=== PATIENT | male | born 1970 | race Caucasian/White ===

== ENCOUNTER 2019-05-17 12:05 | Outpatient (RCR) | payer OTHER, SELFPAY ==
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
--- NOTE | 2019-06-06 10:41 | PCPTNOTE ---
Patient did not show up for scheduled appointment this date.
--- NOTE | 2019-06-08 13:00 | PCPTNOTE ---
pt did not show for today's reevaluation;
--- NOTE | 2019-06-20 11:56 | PCPTNOTE ---
PHYSICAL THERAPY DISCHARGE 06-20-2019 Attending Provider: Ronal Milner MD Patient:Fabricio Corrigan Date of :1970 Mr. Corrigan has not returned for any further treatments since the PT evaluation 05/17/2019, for the diagnosis of R shoulder and anterior trunk pain. Therefore he will be discharged at this time. The goals were not assessed. Thank you for referring Fabric[facility] to [facility]. Please review, sign, date and return this discharge summary GABE. I have been updated about the patient's current status and I agree with discharge from the above service at this time. Referring Physician Date
== END 2019-07-18 14:00 | disposition home or self-care (01) ==
LOC: ANHPT 12:05
PROVIDERS: PCP Family Medicine; Visit Provider Family Medicine
DX: M54.9 Dorsalgia, unspecified (principal)
CPT/HCPCS: 97110; 97161

== ENCOUNTER 2019-10-07 20:21 | Emergency (ER) | payer OTHER, SELFPAY ==
--- NOTE | ~2019-10-07 | CT_ITS ---
EXAMINATION: CT abdomen pelvis wo con DATE: 10/07/2019 21:14 INDICATION: Hematuria TECHNIQUE: Computed tomography (CT) of the abdomen and pelvis was performed without intravenous contr ast. The dose-length product (DLP) was 843.99 mGy-cm. Automated exposure control and iterative recons truction technique were employed. COMPARISON: None FINDINGS: The lung bases are clear. The heart size is normal. The liver, spleen, pancreas, and adrena l glands are normal. Stones are present in the nondistended gallbladder. Cysts of the kidneys measure up to 3.4 cm on the left. No stones are identified in the kidneys, ureters, or bladder. There is no hydronephrosis or hydroureter. No pathologically enlarged abdominal or pelvic lymph nodes are identif ied. There is no free intraperitoneal gas or evidence of bowel obstruction. The appendix is normal. T here is moderate lumbar spondylosis. There is a fat-containing umbilical hernia. IMPRESSION: 1. No CT correlate for the patient's symptoms. 2. Cholelithiasis without evidence of cholecystitis. Reviewed, dictated and finalized at location A.
[2019-10-07 20:23] VITALS: BP 116/61; PULSE 58; RESP 16; TEMP 36.9; O2SAT 98
--- NOTE | 2019-10-07 20:27 | ECG_ITS ---
Measurements Intervals [place] Rate: 52 P: 7 [place]: 171 QRS: -14 QRSD: 152 T: 18 QT: 459 QTc: 430 Interpretive Statements SINUS BRADYCARDIA RIGHT BUNDLE BRANCH BLOCK VOLTAGE CRITERIA FOR LVH HIGH LATERAL INFARCT, AGE INDETERMINATE ABNORMAL ECG Electronically Signed On 10-08-2019 7:11:00 CDT by Amado Godfrey D.O.
[2019-10-07 20:41] LABS: Basophils Absolute Auto 0.1 K/mm3 (0.0-0.1); Basophils Percent Auto 0.5 % (0.2-1.2); Eosinophils Absolute Auto 0.3 K/mm3 (0-0.3); Eosinophils Percent Auto 2.7 % (0-4.4); Hematocrit 42.9 % (42.0-52.0); Hemoglobin 14.8 g/dL (14.0-18.0); Immature Granulocyte Absolute 0.02 K/mm3 (0.00-0.031); Immature Granulocyte Percent A 0.2 % (0-0.5); Lymphocytes Absolute Auto 2.12 K/mm3 (0.9-3.2); Lymphocytes Percent Auto 20.8 % (18.3-44.2); Mean Corpuscular HGB Conc 34.5 g/dl (32-36); Mean Corpuscular Hemoglobin 32.9 pg (26-34); Mean Corpuscular Volume 95.3 fl (80-100); Mean Platelet Volume 9.6 fl (7.4-10.4); Monocytes Absolute Auto 0.9 K/mm3 (0.1-0.6); Monocytes Percent Auto 9.1 % (2.6-8.5); Neutrophils Absolute Auto 6.8 K/mm3 (1.3-6.7); Neutrophils Percent Auto 66.7 % (45.5-73.1); Platelet Count Result 312 k/mm3 (150-375); Red Cell Distribution Width 12.2 % (11.5-14.5); White Blood Count 10.2 K/mm3 (4.5-10.0)
[2019-10-07 20:48] VITALS: BP 105/65; PULSE 54; RESP 14; O2SAT 99
[2019-10-07 20:56] LABS: Alanine Aminotransferase 16 U/L (4-50); Albumin Level 4.5 g/dL (3.5-5.1); Alkaline Phosphatase 83 U/L (38-126); Anion Gap 11.9 mmol/L (7-16); Aspartate Amino Transferase 34 U/L (17-59); Bilirubin,Total 0.8 mg/dL (0.2-1.3); Blood Urea Nitrogen 8 mg/dL (9-20); Calcium 9.4 mg/dL (8.4-10.2); Carbon Dioxide 23 mmol/L (22-30); Chloride 104 mmol/L (98-107); Estimated Glomerular Filt Rate > 60; Glucose 108 mg/dL (75-110); Lipase 128 U/L (23-300); Potassium 3.9 mmol/L (3.4-5.0); Sodium 135 mmol/L (137-145)
[2019-10-07 21:12] LABS: Add Urine Microscopic? YES; Appearance Urine Cloudy (Clear); Bilirubin Urine Negative (Negative); Blood Urine 3+ (Negative); Color Urine Yellow (Yellow); Glucose Urine UA Negative (Negative); Ketones Urine Negative (Negative); Leukocyte Esterase Ur Negative LEU/UL (Negative); Mucus Urine Rare /lpf; Nitrate Urine Negative (Negative); Protein Urine 2+ mg/dL (Negative); RBC Urine >75 /hpf (0-2); Squamous Epithelial Cell Urine Occasional /hpf (Few)
[2019-10-07 21:13] LABS: Specific Grav Ur 1.033 (1.001-1.035)
--- NOTE | 2019-10-07 21:51 | ED.MALEGU ---
HPI - Male Genitourinary General Chief complaint: Urogenital-Male Stated complaint: hematuria Time Seen by Provider: 10/07/19 20:44 Source: patient Mode of arrival: ambulatory Limitations: no limitations History of Present Illness HPI Narrative: 48-year-old male States he went to [employer], felt a sudden urge to urinate, and when he grabbed the tip of my skyler a blood clot came out This process was repeated x1 after he returned home He has had some right sided lower abdomen and flank discomfort but nothing very severe for a day or 2 No trouble voiding and no discomfort with voiding No prior history of kidney stones or of any bleeding problems Onset (ago): hour(s) Duration: intermittent Related Data Home Medications Medication Instructions Recorded Confirmed escitalopram oxalate mg 10/07/19 10/07/19 gabapentin 10/07/19 hydrocodone-acetaminophen tablet 10/07/19 lisinopril 10/07/19 trazodone 10/07/19 Allergies Allergy/AdvReac Type Severity Reaction Status Date / Time No Known Allergies Allergy Verified 10/07/19 20:32 Review of Systems Review of Systems: All systems reviewed & are unremarkable except as noted in HPI and below Constitutional: Constitutional: Denies chills and Denies fever(s) ENT: Denies sore throat Cardiovascular: Cardiovascular: Denies chest pain Respiratory: Respiratory: Denies cough and Denies dyspnea Genitourinary: Genitourinary: Reports hematuria, Denies testicular pain and Denies urinary incontinence Exam Const: General: no acute distress and alert HENMT: Head: normal to inspection Mouth: Yes moist mucous membranes Eyes: Conjunctivae: conjunctivae normal EOM: EOMs intact bilaterally Resp: Effort & Inspection: normal respiratory effort : General: Yes no CVA tenderness Male General Exam: Yes normal external exam Scrotum: no scrotal swelling Testes: no testicular swelling Skin: General skin exam: normal color Rashes: no rashes Neuro: General: patient oriented x3 Course Course Emergency Course: d/w dr pantoja, husam, re f/u Vital Signs Vital signs: Vital Signs Temperature 36.9 C 10/07/19 20:23 Pulse Rate 58 L 10/07/19 20:23 Respiratory Rate 16 10/07/19 20:23 Blood Pressure 116/61 10/07/19 20:23 Pulse Oximetry 98 10/07/19 20:23 Temperature 36.9 C 10/07/19 20:23 Pulse Rate 57 L 10/07/19 22:13 Respiratory Rate 18 10/07/19 22:13 Blood Pressure 126/76 10/07/19 22:13 Pulse Oximetry 97 10/07/19 22:13 MDM - Male Genitourinary Lab Data Result diagrams: 10/07/19 20:35 10/07/19 20:35 Labs: Lab Results 10/07/19 10/07/19 10/07/19 Range/Units 20:35 20:35 21:01 WBC 10.2 H (4.5-10.0) K/mm3 RBC 4.50 L (4.6-6.20) M/mm3 Hgb 14.8 (14.0-18.0) g/dL Hct 42.9 (42.0-52.0) % MCV 95.3 (80-100) fl MCH 32.9 (26-34) pg MCHC 34.5 (32-36) g/dl RDW 12.2 (11.5-14.5) % Plt Count 312 (150-375) k/mm3 MPV 9.6 (7.4-10.4) fl Immature Gran % (Auto) 0.2 (0-0.5) % Neut % (Auto) 66.7 (45.5-73.1) % Lymph % (Auto) 20.8 (18.3-44.2) % [place] % (Auto) 9.1 H (2.6-8.5) % Eos % (Auto) 2.7 (0-4.4) % Baso % (Auto) 0.5 (0.2-1.2) % Lymph # (Auto) 2.12 (0.9-3.2) K/mm3 [place] # (Auto) 0.9 H (0.1-0.6) K/mm3 Eos # (Auto) 0.3 (0-0.3) K/mm3 Baso # (Auto) 0.1 (0.0-0.1) K/mm3 Abs Immat Gran (auto) 0.02 (0.00-0.031) K/mm3 Absolute Neuts (auto) 6.8 H (1.3-6.7) K/mm3 Absolute Nucleated RBC 0.0 (0.0-0.012) K/mm3 Nucleated RBC % 0.0 (0.0-0.2) % Sodium 135 L (137-145) mmol/L Potassium 3.9 (3.4-5.0) mmol/L Chloride 104 (98-107) mmol/L Carbon Dioxide 23 (22-30) mmol/L Anion Gap 11.9 (7-16) mmol/L BUN 8 L (9-20) mg/dL Creatinine 1.00 (0.7-1.3) mg/dL Estim Creat Clear Calc Not Reportable Estimated GFR > 60 (59 - ) Glucose 108 (75-110) mg/dL Calcium 9.4 (8.4-10.2) m
[2019-10-07 22:13] VITALS: BP 126/76; PULSE 57; RESP 18; O2SAT 97
[2019-10-07 23:01] VITALS: BP 123/75; PULSE 52; RESP 16; O2SAT 99
== END 2019-10-07 23:03 | disposition home or self-care (01) ==
PROVIDERS: Emergency Medicine; Emergency Provider Emergency Medicine; PCP Family Medicine
DX: R31.9 Hematuria, unspecified (principal); R00.1 Bradycardia, unspecified; I45.10 Unspecified right bundle-branch block; R94.31 Abnormal electrocardiogram [ECG] [EKG]
CPT/HCPCS: 36415; 74176; 80053; 81001; 83690; 85025; 93005; 99284

== ENCOUNTER 2019-11-15 10:21 | Outpatient (CLI) | payer OTHER, SELFPAY ==
--- NOTE | 2019-11-15 | EST_ITS ---
Patient Info Name: Fabricio Corrigan Age: 49 years : 1970 Gender: Male Ht: 72 in Wt: 279 lbs BSA: 2.58 m2 Exam Date: 11/15/2019 12:29 PM Exam Location: [facility] Stress Patient Status: Outpatient Admit Date: 11/15/2019 Staff Ordering Physician: Ronal Milner MD Attending Provider: GEOFF HOWARD. ANP Exercise Technologist: Taras Corrigan RDCS, RT Exam Type: CA stress test treadmill Study Info Indications R07.89 - Other chest pain A treadmill exercise stress test was performed. Summary 1. Chest discomfort with stress test, probably cardiac in origin. 2. Nondiagnostic stress ECG at sub maximal workload. Patient only achieved 75% of max predicted heart rate for age as test was terminated due to worsening shortness of breath and chest tightness. 3. Below average exercise capacity for age. 4. Recommend further cardiology evaluation based upon his exercise-induced chest pain and inability to obtain 85% maximum predicted heart rate for age. Protocol: James Stress ECG Details Stage: REST Duration (min): 1 min : 0 sec Speed (mph): 0.0 Grade (%): 0 HR (bpm): 51 SBP (mmHg): 124 DBP (mmHg): 68 METS: --- Stage: REST Duration (min): 2 min : 4 sec Speed (mph): 0.0 Grade (%): 0 HR (bpm): 68 SBP (mmHg): 124 DBP (mmHg): 68 METS: --- Stage: STAGE 1 Duration (min): 1 min : 0 sec Speed (mph): 1.7 Grade (%): 10 HR (bpm): 86 SBP (mmHg): 124 DBP (mmHg): 68 METS: --- Stage: STAGE 1 Duration (min): 2 min : 0 sec Speed (mph): 1.7 Grade (%): 10 HR (bpm): 97 SBP (mmHg): 124 DBP (mmHg): 68 METS: --- Stage: STAGE 1 Duration (min): 3 min : 0 sec Speed (mph): 1.7 Grade (%): 10 HR (bpm): 94 SBP (mmHg): 158 DBP (mmHg): 76 METS: --- Stage: STAGE 2 Duration (min): 1 min : 0 sec Speed (mph): 2.5 Grade (%): 12 HR (bpm): 109 SBP (mmHg): 158 DBP (mmHg): 76 METS: --- Stage: STAGE 2 Duration (min): 2 min : 0 sec Speed (mph): 2.5 Grade (%): 12 HR (bpm): 123 SBP (mmHg): 158 DBP (mmHg): 76 METS: --- Stage: STAGE 2 Duration (min): 3 min : 0 sec Speed (mph): 2.5 Grade (%): 12 HR (bpm): 121 SBP (mmHg): 185 DBP (mmHg): 98 METS: --- Stage: STAGE 3 Duration (min): 0 min : 7 sec Speed (mph): 3.4 Grade (%): 14 HR (bpm): 123 SBP (mmHg): 185 DBP (mmHg): 98 METS: --- Stage: RECOVERY Duration (min): 0 min : 52 sec Speed (mph): 0.0 Grade (%): 0 HR (bpm): 89 SBP (mmHg): 185 DBP (mmHg): 98 METS: --- Stage: RECOVERY Duration (min): 1 min : 52 sec Speed (mph): 0.0 Grade (%): 0 HR (bpm): 71 SBP (mmHg): 185 DBP (mmHg): 98 METS: --- Stage: RECOVERY Duration (min): 2 min : 52 sec Speed (mph): 0.0 Grade (%): 0 HR (bpm): 56 SBP (mmHg): 185 DBP (mmHg): 98 METS: ---
--- NOTE | 2019-11-15 | ECHO_ITS ---
Patient Info Name: Fabricio Corrigan Age: 49 years : 1970 Gender: Male Ht: 73 in Wt: 279 lbs BSA: 2.60 m2 HR: 48 bpm BP: 128 / 72 mmHg Heart Rhythm: Bradycardia Technical Quality: Good Exam Date: 11/15/2019 11:21 AM Exam Location: [facility] Pulmonary Patient Status: Outpatient Admit Date: 11/15/2019 Staff Ordering Physician: Ronal Milner MD [id number] Developer: Raisa Garcia RDCS Attending Provider: Ronal Milner MD Referring Physician: Alf MELENDREZ; Exam Type: CA echo doppler color flow Study Info Indications - chest pain Complete two-dimensional, color flow and Doppler transthoracic echocardiogram is performed. Strain analysis performed. Summary 1. Complete two-dimensional, color flow and Doppler transthoracic echocardiogram is performed. 2. Strain analysis performed. 3. Left ventricular chamber dimension is normal. 4. Left ventricular systolic function is normal, estimated at 65-70%. 5. There is mildly increased left ventricular wall thickness. 6. The left ventricular diastolic function is normal. 7. Global longitudinal strain is normal at -21 %. 8. Left atrial chamber dimension is mildly enlarged. 9. Abnormal appearance of the aortic valve with a 0.4 cm calcification associated with what appears to be the non coronary cusp. There is corresponding moderate aortic insufficiency. Transesophageal echocardiogram is recommended for further evaluation. 10. There is mild tricuspid valve regurgitation. 11. There is mild pulmonic regurgitation. Left Ventricle Left ventricular chamber dimension is normal. Left ventricular systolic function is normal, estimated at 65-70%. There is mildly increased left ventricular wall thickness. The left ventricular diastolic function is normal. Global longitudinal strain is normal at -21 %. Right Ventricle Right ventricular chamber dimension is normal. Right ventricular systolic function is normal. Left Atria Left atrial chamber dimension is mildly enlarged. Right Atria Right atrial chamber dimension is normal. Atrial Septum Intact interatrial septum visualized by color flow imaging. Aortic Valve The aortic valve is probable trileaflet. There is no aortic valve stenosis. There is moderate aortic valve regurgitation. Abnormal appearance of the aortic valve with a 0.4 cm calcification associated with what appears to be the non coronary cusp. There is corresponding moderate aortic insufficiency. Transesophageal echocardiogram is recommended for further evaluation. Pulmonic Valve The pulmonic valve is normal. There is no pulmonic valve stenosis. There is mild pulmonic regurgitation. Mitral Valve The mitral valve has thickened leaflets. There is no mitral valve stenosis. There is trace mitral valve regurgitation. Tricuspid Valve The tricuspid valve leaflets are normal. There is no significant tricuspid valve stenosis. There is mild tricuspid valve regurgitation. No pulmonary hypertension, estimated pulmonary arterial systolic pressure is 34 mmHg. Pericardium/Pleural The pericardium appears normal. There is no pericardial effusion. Inferior Vena Cava Normal inferior vena cava with >50% collapse upon inspiration consistent with normal right atrial pressure, 10 mmHg. Aorta The aortic root size at the sinus of Valsalva is normal. The prox ascending aorta size is normal. Left Ventricular Outflow Tract
== END 2019-11-15 10:22 | disposition home or self-care (01) ==
PROVIDERS: PCP Family Medicine; Visit Provider Family Medicine
DX: R07.89 Other chest pain (principal); I51.7 Cardiomegaly; I08.2 Rheumatic disorders of both aortic and tricuspid valves
CPT/HCPCS: 93017; 93306

== ENCOUNTER 2019-11-24 10:41 | Outpatient (CLI) | payer OTHER, SELFPAY ==
[2019-11-24 11:19] LABS: Cholesterol 161 mg/dL (0-200); HDL Direct 37 mg/dL; Triglycerides 88 mg/dL (<150)
[2019-11-24 11:30] LABS: LDL Cholesterol Direct 103 mg/dL
== END 2019-11-24 10:42 | disposition home or self-care (01) ==
PROVIDERS: PCP Family Medicine; Visit Provider Internal Medicine Cardiovascular Disease
DX: E66.9 Obesity, unspecified (principal)
CPT/HCPCS: 36415; 80061

== ENCOUNTER 2019-12-06 09:11 | Outpatient (CLI) | payer OTHER, SELFPAY ==
--- NOTE | 2019-12-06 | EST_ITS ---
Patient Info Name: Fabricio Corrigan Age: 49 years : 1970 Gender: Male Ht: 72 in Wt: 280 lbs BSA: 2.59 m2 Exam Date: 12/06/2019 11:35 AM Exam Location: [facility] Stress Patient Status: Outpatient Admit Date: 12/06/2019 Staff Ordering Physician: Aramis, Sunita Yi NP Attending Provider: Aramis, Sunita Yi NP Exercise Technologist: Taras Corrigan RDCS, RT Exercise Physician: Amado Godfrey DO Exam Type: CA stress era w NM Study Info A regadenoson stress test was performed. Summary 1. 1. Negative lexiscan stress test for ischemic ST changes by ECG criteria. 2. 2. Stable hemodynamics throughout the test. 3. 3. Nuclear scan to follow and will be reported separately. Please correlate with it. 4. 4. Patient informed of the above results. Protocol: Lexiscan Stress ECG Details Stage: REST Duration (min): 1 min : 24 sec HR (bpm): 44 SBP (mmHg): 139 DBP (mmHg): 66 Stage: REST Duration (min): 15 min : 50 sec HR (bpm): 48 SBP (mmHg): 139 DBP (mmHg): 66 Stage: STAGE 1 Duration (min): 1 min : 0 sec HR (bpm): 62 SBP (mmHg): 123 DBP (mmHg): 81 Stage: RECOVERY Duration (min): 1 min : 0 sec HR (bpm): 72 SBP (mmHg): 123 DBP (mmHg): 81 Stage: RECOVERY Duration (min): 2 min : 0 sec HR (bpm): 69 SBP (mmHg): 123 DBP (mmHg): 81 Stage: RECOVERY Duration (min): 3 min : 0 sec HR (bpm): 64 SBP (mmHg): 127 DBP (mmHg): 81 Stage: RECOVERY Duration (min): 3 min : 11 sec HR (bpm): 62 SBP (mmHg): 127 DBP (mmHg): 81 Rest HR: 48 bpm Peak HR: 74 bpm Rest Sys BP: 139 mmHg Peak Sys BP: 127 mmHg Max Pred HR: 169 bpm % Max Pred HR: 44 % Target HR: 144 bpm Max RPP: 9,398 bpm*mmHg Termination Reason: Completed protocol Cardiac Symptoms: Shortness of breath, Chest tightness Total Time: 1 min : 0 sec Rest Anderson BP: 66 mmHg Peak Anderson BP: 81 mmHg Total Dose: 0.4 mg Resting ECG Sinus bradycardia with RBBB. Stress ECG No ST changes. Arrhythmias None. Report Signatures
--- NOTE | ~2019-12-06 | NM_ITS ---
EXAMINATION: NM era stress w perfusion DATE: 12/06/2019 13:31 INDICATION: Central chest pain. TECHNIQUE: Rest images were obtained following intravenous administration of 10.2 mCi Tc99m tetrofosm in (Myoview). The patient was infused intravenously with Lexiscan (regadenoson). Then, 20.5 mCi Tc99m tetrofosmin (Myoview) was administered intravenously, and supine and prone stress images were obtain ed. Data was reconstructed into short axis and horizontal and vertical long axis SPECT images. Gated SPECT images were also obtained. COMPARISON: CT abdomen and pelvis 10/07/2019 FINDINGS: There is no definite reversible or fixed perfusion abnormality to suggest ischemia or infar ction. There is no segmental wall motion abnormality. Left ventricular ejection fraction measures 5 5%. IMPRESSION: 1. No definite ischemia or infarct. 2. Normal left ventricular ejection fraction measuring 55%. Reviewed, dictated and finalized at location A.
== END 2019-12-06 09:12 | disposition home or self-care (01) ==
PROVIDERS: PCP Family Medicine; Visit Provider Nurse Practitioner
DX: R07.9 Chest pain, unspecified (principal)
CPT/HCPCS: 78452; 93017; A9502; J2785

== ENCOUNTER 2019-12-29 14:31 | Emergency (ER) | payer OTHER, SELFPAY ==
--- NOTE | ~2019-12-29 | XR_ITS ---
EXAMINATION: XR chest 1V portable INDICATION: Left-sided chest pain TECHNIQUE: Portable AP chest at 1633 hours COMPARISON: None available FINDINGS: The heart size is upper limits of normal for technique. There are minimal airspace opacitie s of the lung bases. No pleural effusion or pneumothorax is identified. Surgical changes are noted in the cervical spine. IMPRESSION: 1. Bibasilar airspace opacities, consistent with atelectasis versus pneumonia. Reviewed, dictated and finalized at location A.
[2019-12-29 14:35] VITALS: BP 115/65; PULSE 73; RESP 20; TEMP 36.6; O2SAT 98
--- NOTE | 2019-12-29 14:46 | ECG_ITS ---
Measurements Intervals [place] Rate: 55 P: 48 ND: 206 QRS: -20 QRSD: 156 T: 21 QT: 443 QTc: 424 Interpretive Statements SINUS BRADYCARDIA WITH FIRST DEGREE AV BLOCK RIGHT BUNDLE BRANCH BLOCK VOLTAGE CRITERIA FOR LVH HIGH LATERAL INFARCT, AGE INDETERMINATE ABNORMAL ECG Electronically Signed On 12-30-2019 7:27:44 CDT by Amado Godfrey D.O.
[2019-12-29 14:57] LABS: Basophils Absolute Auto 0.1 K/mm3 (0.0-0.1); Basophils Percent Auto 0.8 % (0.2-1.2); Eosinophils Absolute Auto 0.3 K/mm3 (0-0.3); Eosinophils Percent Auto 4.7 % (0-4.4); Hematocrit 45.5 % (42.0-52.0); Hemoglobin 15.6 g/dL (14.0-18.0); Immature Granulocyte Absolute 0.03 K/mm3 (0.00-0.031); Immature Granulocyte Percent A 0.4 % (0-0.5); Lymphocytes Absolute Auto 2.66 K/mm3 (0.9-3.2); Lymphocytes Percent Auto 36.8 % (18.3-44.2); Mean Corpuscular HGB Conc 34.3 g/dl (32-36); Mean Corpuscular Hemoglobin 33.1 pg (26-34); Mean Corpuscular Volume 96.4 fl (80-100); Monocytes Absolute Auto 0.5 K/mm3 (0.1-0.6); Monocytes Percent Auto 6.9 % (2.6-8.5); Neutrophils Absolute Auto 3.6 K/mm3 (1.3-6.7); Neutrophils Percent Auto 50.4 % (45.5-73.1); Platelet Count Result 254 k/mm3 (150-375); Red Blood Count 4.72 M/mm3 (4.6-6.20); Red Cell Distribution Width 11.9 % (11.5-14.5); White Blood Count 7.2 K/mm3 (4.5-10.0)
[2019-12-29 15:00] VITALS: PULSE 56
[2019-12-29 15:05] LABS: Prothrombin Time 13.2 Seconds (11.1-14.7)
[2019-12-29 15:06] LABS: Partial Thromboplastin Time 34.9 SECONDS (22.3-36.8)
[2019-12-29 15:08] LABS: Anion Gap 9 mmol/L (8-16); Blood Urea Nitrogen 8 mg/dL (9-20); Calcium 9.3 mg/dL (8.4-10.2); Carbon Dioxide 28 mmol/L (22-30); Chloride 103 mmol/L (98-107); Estimated CRCL calculation 116 ml/min; Estimated Glomerular Filt Rate > 60; Glucose 118 mg/dL (75-110); Potassium 4.1 mmol/L (3.4-5.0); Sodium 140 mmol/L (137-145)
[2019-12-29 15:20] LABS: Troponin I < 0.012 ng/mL (0.000-0.034)
[2019-12-29 15:40] VITALS: BP 114/52; PULSE 61; RESP 17; O2SAT 98
[2019-12-29] MEDS: ALBUTEROL SULFATE NEB 2.5 MG/0.5 ML INH 5 MG INHALATION (15:54)
[2019-12-29] MEDS: IPRATROPIUM BR 0.02% INH SOLN 0.5 MG/2.5 ML VIAL INHALATION (15:54)
[2019-12-29 15:55] VITALS: PULSE 46; RESP 16
--- NOTE | 2019-12-29 15:57 | ED.CHESTPAIN ---
HPI - Chest Pain General Chief Complaint: Chest Pain Stated Complaint: chest pain, tingling arm Time Seen by Provider: 12/29/19 14:56 History of Present Illness HPI narrative: Patient is a 49-year-old male who presents ER with central chest tightness and heaviness. Ongoing for the last week. Reports he does have exertional fatigue which has been ongoing. He has had a recent stress test that he is unsure of the results. He reports he also has chronic neck pain and has been feeling some left shoulder and arm numbness related to the chest discomfort into his neck. No known trauma. Has not found any alleviating factors. He is also noted that he has been wheezing with this discomfort. He has tried his rescue inhaler and his control inhaler without relief. No runny nose/sore throat/productive cough. His [id number]-to-kxq who lives with him is Covid positive but his and stepchild are Covid negative. He has not been tested. He has been afebrile. Related Data Home Medications Medication Instructions Recorded Confirmed escitalopram oxalate mg 10/07/19 11/24/19 gabapentin 10/07/19 11/24/19 hydrocodone-acetaminophen tablet 10/07/19 11/24/19 lisinopril 10/07/19 11/24/19 trazodone 10/07/19 11/24/19 Allergies Allergy/AdvReac Type Severity Reaction Status Date / Time No Known Allergies Allergy Verified 12/29/19 15:01 Review of Systems Review of Systems: All systems reviewed & are unremarkable except as noted in HPI and below Constitutional: Constitutional: Denies body ache(s) and Denies chills ENT: Denies nasal congestion, Reports neck pain (chronic), Denies sinus pressure and Denies sore throat Cardiovascular: Cardiovascular: Reports chest pain, Denies chest pain with activity, Denies irregular heart rhythm and Denies leg edema Respiratory: Respiratory: Denies chest congestion, Denies cough, Reports dyspnea and Reports wheezing PMFSH Past Medical History Medical History (Updated 12/29/19 @ 18:25 by Jose Gee MD) Aortic regurgitation Hypertension Surgical History Surgical History (Updated 12/29/19 @ 16:03 by Jose Gee MD) H/O neck surgery Social History Social History (Updated 12/29/19 @ 18:25 by Jose Gee MD) Smoking status: Never smoker Substance use type: marijuana Exam Narrative: Exam Narrative: GENERAL: Well-appearing, well-nourished, and in no acute distress. HEAD: Normocephalic, atraumatic. CHEST: Clear to auscultation with referred upper respiratory wheezing. No respiratory distress. HEART: Regular rate and rhythm. Normal peripheral pulses. ABDOMEN: Soft, nontender, nondistended, normal active bowel sounds. EXTREMITIES: Normal range of motion. No edema. SKIN: Warm, dry, no rash. NEURO: Alert and oriented x3. PSYCH: Normal mood and affect. Course Course Emergency Course: Patient with improvement of symptoms with nebulizer treatment. Patient does have some wheezing. May be having reactive lung disease to viral infection. This does raise the concern for Covid so he will be swabbed. He will be discharged with azithromycin. I have instructed him to use his albuterol every 4 hours and to use 4 puffs each time. He has had a negative stress test recently. Vital Signs Vital signs: Vital Signs Temperature 97.8 F 12/29/19 14:35 Pulse Rate 73 12/29/19 14:35 Respiratory Rate 20 12/29/19 14:35 Blood Pressure 115/65 12/29/19 14:35 Pulse Oximetry 98 12/29/19 14:35 Temperature 97.8 F 12/29/19 14:35 Pulse Rate 53 L 12/29/19 16:37 Respiratory Rate 17 12/29/19 16:37 Blood Pressure 116/82 12/29/19 16:37 Pulse Oximetry 98 12/29/19 16:37 MDM - Chest Pain Lab Data Result diagrams: 12/29/19 14:49 12/29/19 14:49 Labs: Lab Results 12/29/19 12/29/19 12/29/19 Range/Units 14:49 14:49 14:49 WBC 7.2 (4.5-10.0) K/mm3 RBC 4.72 (4.6-6.20) M/mm3 Hgb 15.6 (14.0-18.0) g/dL Hct 45.5 (42.
[2019-12-29 16:37] VITALS: BP 116/82; PULSE 53; RESP 17; O2SAT 98
[2019-12-29 18:10] LABS: Troponin I < 0.012 ng/mL (0.000-0.034)
[2019-12-30 13:17] LABS: SARS-CoV-2 RNA PCR Negative
== END 2019-12-29 18:45 | disposition home or self-care (01) ==
PROVIDERS: Emergency Provider Emergency Medicine; PCP Family Medicine
DX: J40 Bronchitis, not specified as acute or chronic (principal); Z20.828 Contact with and (suspected) exposure to other viral communicable diseases; I10 Essential (primary) hypertension; I35.1 Nonrheumatic aortic (valve) insufficiency
CPT/HCPCS: 36415; 71045; 80048; 84484; 85025; 85610; 85730; 87635; 93005; 94640; 99284; C9803; U0003

== ENCOUNTER 2020-04-17 15:32 | Outpatient (CLI) | payer OTHER, SELFPAY ==
--- NOTE | ~2020-04-17 | CT_ITS ---
EXAMINATION: CT abdomen pelvis wo con EXAM DATE: 04/17/2020 16:20 INDICATION: Low abdominal pain. TECHNIQUE: Spiral CT of the abdomen and pelvis was performed without contrast. Axial, coronal and s agittal images were reviewed. The dose-length product (DLP) for this examination was 1409.56 mGy-cm. The exposure was tailored according to patient size (auto mA exposure control), and iterative recon struction (ASIR) was used as additional dose reduction technique. There is no prior study for compar brooks. FINDINGS: The liver, spleen, adrenal glands and pancreas are unremarkable. There are gallstones with in an otherwise unremarkable gallbladder. No evidence of obstructive biliary disease. Left renal cys t measuring 3.4 cm. There is no nephrolithiasis or hydronephrosis. The prostate is unremarkable. The bladder is unremarkable. There is no retroperitoneal or pelvic lymphadenopathy. Probable small r egion of chronic fat necrosis deep to the right inguinal canal. There are no findings to suggest appendicitis. The stomach and small bowel are unremarkable. There is expected amount of colonic stool. No free intraperitoneal gas. The heart is normal in size. T here are no pericardial or pleural effusions. Some faint ill-defined regions of basilar groundglass opacity, more pronounced than on previous exam. Could be air trapping or nonspecific pneumonitis. The bones are unremarkable. IMPRESSION: 1. Small amount of basilar groundglass opacities, air trapping or nonspecific pneumonitis. 2. No acute intra-abdominal findings. Reviewed, dictated and finalized at location B. 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
== END 2020-04-17 15:33 | disposition home or self-care (01) ==
PROVIDERS: PCP Family Medicine; Visit Provider Nurse Practitioner
DX: R10.30 Lower abdominal pain, unspecified (principal); R91.8 Other nonspecific abnormal finding of lung field
CPT/HCPCS: 74176

== ENCOUNTER 2020-08-20 09:33 | Outpatient (CLI) | payer OTHER, SELFPAY ==
[2020-08-20 10:07] LABS: Basophils Percent Auto 0.7 % (0.2-1.2); Eosinophils Absolute Auto 0.4 K/mm3 (0-0.3); Eosinophils Percent Auto 5.8 % (0-4.4); Hematocrit 41.2 % (42.0-52.0); Hemoglobin 14.2 g/dL (14.0-18.0); Immature Granulocyte Absolute 0.02 K/mm3 (0.00-0.031); Immature Granulocyte Percent A 0.3 % (0-0.5); Lymphocytes Absolute Auto 1.76 K/mm3 (0.9-3.2); Lymphocytes Percent Auto 29.3 % (18.3-44.2); Mean Corpuscular HGB Conc 34.5 g/dl (32-36); Mean Corpuscular Hemoglobin 32.3 pg (26-34); Mean Corpuscular Volume 93.8 fl (80-100); Mean Platelet Volume 9.5 fl (7.4-10.4); Monocytes Absolute Auto 0.8 K/mm3 (0.1-0.6); Monocytes Percent Auto 12.5 % (2.6-8.5); Neutrophils Absolute Auto 3.1 K/mm3 (1.3-6.7); Neutrophils Percent Auto 51.4 % (45.5-73.1); Platelet Count Result 238 k/mm3 (150-375); Red Blood Count 4.39 M/mm3 (4.6-6.20); Red Cell Distribution Width 12.3 % (11.5-14.5)
[2020-08-20 10:17] LABS: Alanine Aminotransferase 14 U/L (4-50); Albumin Level 4.1 g/dL (3.5-5.1); Alkaline Phosphatase 58 U/L (38-126); Anion Gap 8 mmol/L (8-16); Aspartate Amino Transferase 27 U/L (17-59); Bilirubin,Total 0.6 mg/dL (0.2-1.3); Blood Urea Nitrogen 11 mg/dL (9-20); Calcium 9.6 mg/dL (8.4-10.2); Carbon Dioxide 27 mmol/L (22-30); Chloride 106 mmol/L (98-107); Cholesterol 163 mg/dL (0-200); Estimated Glomerular Filt Rate > 60; Glucose 93 mg/dL (75-110); HDL Direct 46 mg/dL; Potassium 4.2 mmol/L (3.4-5.0); Sodium 141 mmol/L (137-145); Triglycerides 95 mg/dL (<150)
[2020-08-20 10:29] LABS: LDL Cholesterol Direct 79 mg/dL
[2020-08-20 10:38] LABS: Creatinine Urine 203.7 mg/dL
[2020-08-20 10:42] LABS: MALB Creatinine Ratio 6.3 mg/g (0-30); Microalbumin Urine Random 12.9 mg/L (0-16.7)
[2020-08-20 10:48] LABS: Prostate Specific Antigen 2.7 ng/mL (< OR = 4.0); Total Triiodothyronine (T3) 1.72 NG/ML (0.97-1.69)
[2020-08-20 10:54] LABS: Free T4 Free Thyroxine 1.32 ng/mL (0.78-2.19); Vitamin D 25 Hydroxy 42.8 ng/mL
== END 2020-08-20 09:34 | disposition home or self-care (01) ==
PROVIDERS: PCP Family Medicine; Visit Provider Nurse Practitioner
DX: F32.9 Major depressive disorder, single episode, unspecified (principal); F41.9 Anxiety disorder, unspecified; I10 Essential (primary) hypertension; G47.00 Insomnia, unspecified
CPT/HCPCS: 36415; 80053; 80061; 82043; 82306; 84153; 84439; 84443; 84480; 85025; G0103

== ENCOUNTER 2020-09-04 19:56 | Emergency (ER) | payer OTHER, SELFPAY ==
--- NOTE | ~2020-09-04 | CT_ITS ---
EXAMINATION: CT abdomen pelvis w con DATE: 09/04/2020 23:03 INDICATION: Right lower quadrant abdominal pain. Right flank pain. TECHNIQUE: Computed tomography (CT) of the abdomen and pelvis was performed with 100 mL Omnipaque 350 intravenous contrast. Automated exposure control and iterative reconstruction technique were employe d. The dose-length product was 1410.54 mGy-cm. COMPARISON: CT abdomen and pelvis 04/17/2020 FINDINGS: The visualized portions of the lung bases demonstrate mild atelectasis. No pleural effusion . The heart size is normal. No pericardial effusion. The liver is normal. There are gallstones in the gallbladder, which is distended. The spleen, pancreas, and adrenal glands are normal. There is corti torrey thinning of the kidneys. There are cysts in the kidneys measuring up to 3.7 cm on the left. The p rostate is mildly enlarged. There are no dilated loops of bowel. The appendix is normal. There are no pathologically enlarged lymph nodes. There is trace pelvic ascites. There is severe lumbar spondylos is. IMPRESSION: 1. Cholelithiasis. Gallbladder distention may be secondary to fasting or acute cholecystitis. Correla te with physical exam. Reviewed, dictated and finalized at location A. IMPRESSION: 1. Cholelithiasis. Gallbladder distention may be secondary to fasting or acute cholecystitis. Correlate with physical exam.
[2020-09-04 20:09] VITALS: BP 125/68; PULSE 58; RESP 16; TEMP 37.3; O2SAT 100
[2020-09-04 20:22] LABS: Basophils Percent Auto 0.5 % (0.2-1.2); Eosinophils Absolute Auto 0.2 K/mm3 (0-0.3); Eosinophils Percent Auto 2.6 % (0-4.4); Hematocrit 43.9 % (42.0-52.0); Hemoglobin 15.5 g/dL (14.0-18.0); Immature Granulocyte Absolute 0.03 K/mm3 (0.00-0.031); Immature Granulocyte Percent A 0.4 % (0-0.5); Lymphocytes Absolute Auto 1.66 K/mm3 (0.9-3.2); Lymphocytes Percent Auto 21.4 % (18.3-44.2); Mean Corpuscular HGB Conc 35.3 g/dl (32-36); Mean Corpuscular Hemoglobin 32.8 pg (26-34); Mean Platelet Volume 9.2 fl (7.4-10.4); Monocytes Absolute Auto 0.6 K/mm3 (0.1-0.6); Monocytes Percent Auto 7.4 % (2.6-8.5); Neutrophils Absolute Auto 5.2 K/mm3 (1.3-6.7); Neutrophils Percent Auto 67.7 % (45.5-73.1); Platelet Count Result 257 k/mm3 (150-375); Red Blood Count 4.72 M/mm3 (4.6-6.20); Red Cell Distribution Width 11.9 % (11.5-14.5); White Blood Count 7.7 K/mm3 (4.5-10.0)
[2020-09-04 20:33] LABS: Alanine Aminotransferase 19 U/L (4-50); Albumin Level 4.5 g/dL (3.5-5.1); Alkaline Phosphatase 69 U/L (38-126); Anion Gap 7 mmol/L (8-16); Aspartate Amino Transferase 35 U/L (17-59); Bilirubin,Total 0.7 mg/dL (0.2-1.3); Blood Urea Nitrogen 13 mg/dL (9-20); Calcium 9.7 mg/dL (8.4-10.2); Carbon Dioxide 25 mmol/L (22-30); Chloride 107 mmol/L (98-107); Estimated CRCL calculation 92 ml/min; Estimated Glomerular Filt Rate > 60; Glucose 110 mg/dL (75-110); Lipase 149 U/L (23-300); Potassium 4.6 mmol/L (3.4-5.0); Sodium 139 mmol/L (137-145)
[2020-09-04 20:58] LABS: Add Urine Microscopic? NO; Appearance Urine Clear (Clear); Bilirubin Urine Negative (Negative); Blood Urine Negative (Negative); Color Urine Yellow (Yellow); Glucose Urine UA Negative (Negative); Ketones Urine Negative (Negative); Leukocyte Esterase Ur Negative LEU/UL (Negative); Nitrate Urine Negative (Negative); Protein Urine Negative (Negative); Specific Grav Ur 1.019 (1.001-1.035); Urobilinogen Urine Negative mg/dL (<2.0)
--- NOTE | 2020-09-04 22:39 | ED.NAVMDI ---
HPI - Nausea/Vomiting/Diarrhea General Chief complaint: Nausea/Vomiting/Diarrhea Stated complaint: diarrhea since wed- eat, only sleep Time Seen by Provider: 09/04/20 21:36 Source: patient Mode of arrival: ambulatory Limitations: no limitations History of Present Illness HPI Narrative: Patient is a 49-year-old male complaining of diarrhea, described as loose watery, nonbloody, accompanied by decrease in appetite, generalized weakness and lower abdominal pain. Patient states that when he tries to drink or eat it goes right through him, meaning his diarrhea. Patient denies any nausea, vomiting, fever or chills. Related Data Home Medications Medication Instructions Recorded Confirmed gabapentin 10/07/19 06/27/20 hydrocodone-acetaminophen tablet 10/07/19 06/27/20 bupropion HCl 150 mg tablet,12 hr 150 mg PO DAILY 03/29/20 06/27/20 sustained-release trazodone 100 mg tablet 150 mg PO DAILY tablet 05/09/20 06/27/20 albuterol sulfate 90 mcg/actuation 1 puff INHALATION Q4H PRN 06/27/20 06/27/20 aerosol inhaler fluticasone propionate 50 1 inh INHALATION Q12H 06/27/20 06/27/20 mcg/actuation blister powder for inhalation lamotrigine 25 mg tablet 75 mg PO DAILY 06/27/20 06/27/20 lisinopril 20 mg tablet 20 mg PO DAILY 06/27/20 06/27/20 loratadine 10 mg tablet 10 mg PO DAILY 06/27/20 06/27/20 meloxicam 15 mg tablet 15 mg PO DAILY 06/27/20 06/27/20 gabapentin 09/04/20 hydrocodone-acetaminophen tablet 09/04/20 Allergies Allergy/AdvReac Type Severity Reaction Status Date / Time No Known Allergies Allergy Verified 09/04/20 23:18 Review of Systems Review of Systems: All systems reviewed & are unremarkable except as noted in HPI and below Constitutional: Constitutional: Denies body ache(s), Denies chills, Denies excessive sweating, Denies fatigue, Denies fever(s), Denies headache(s), Denies lethargy, Denies malaise, Denies weakness and Denies weight loss Eyes: Eyes: Denies blurry vision, Denies change in vision and Denies loss of vision ENT: Denies dizziness, Denies ear discharge, Denies headache(s), Denies lip swelling, Denies epistaxis, Denies nasal congestion, Denies neck pain, Denies throat swelling and Denies tongue swelling Cardiovascular: Cardiovascular: Denies chest pain, Denies chest pain at rest, Denies chest pain with activity, Denies diaphoresis, Denies rapid heart rate, Denies edema, Denies irregular heart rhythm, Denies lightheadedness, Denies palpitations, Denies dyspnea and Denies dyspnea on exertion Respiratory: Respiratory: Denies chest congestion, Denies cough, Denies hemoptysis, Denies dyspnea and Denies dyspnea on exertion Gastrointestinal: Gastrointestinal: Denies melena, Denies hematochezia, Denies nausea, Denies vomiting and Denies hematemesis Musculoskeletal: Musculoskeletal: Denies abnormal gait, Denies deformity, Denies joint swelling, Denies limited range of motion, Denies neck pain and Denies numbness Neurologic: Denies Abnormal speech present, Denies abnormal gait, Denies confusion, Denies dizziness, Denies headache(s), Denies focal weakness, Denies loss of vision, Denies numbness, Denies Other visual disturbances, Denies Sensory deficit (Neuro) and Denies weakness Psychiatric: Psychiatric: Denies confusion, Denies depression, Denies auditory hallucinations, Denies homicidal ideation and Denies suicidal ideation Endocrine: Endocrine: Denies cold intolerance, Denies excessive sweating, Denies fatigue, Denies heat intolerance and Denies palpitations Hematologic/Lymphatic: Hematologic/Lymphatic: Denies easy bleeding and Denies easy bruising Allergic/Immunologic: Allergic/Immunologic: Denies lip swelling, Denies throat swelling and Denies tongue swelling PMFSH Past Medical History Medical History Aortic regurgitation Degenerative arthritis Dorsalgia Hypertension Opiate dependence Surgical History Surgical History (Reviewed 09/04/20 @
[2020-09-04] MEDS: LACTATED RINGERS 1,000 ML 999 ML IV CONT (23:05)
[2020-09-04 23:24] VITALS: BP 120/78; PULSE 49; RESP 16; O2SAT 98
[2020-09-05] MEDS: HYDROcodone/acetaminophen (*CRX) 5-325 MG TABLET 2 TAB PO (00:10)
[2020-09-05 00:17] VITALS: BP 120/68; PULSE 54; RESP 16; O2SAT 99
== END 2020-09-05 00:17 | disposition home or self-care (01) ==
PROVIDERS: Emergency Medicine; Emergency Provider Emergency Medicine; PCP Family Medicine
DX: K52.9 Noninfective gastroenteritis and colitis, unspecified (principal); K80.20 Calculus of gallbladder without cholecystitis without obstruction; I10 Essential (primary) hypertension
CPT/HCPCS: 36415; 74177; 80053; 81003; 83690; 85025; 96360; 99284; A9270; J7120; Q9967

== ENCOUNTER 2020-10-05 22:43 | Emergency (ER) | payer OTHER, SELFPAY ==
--- NOTE | ~2020-10-05 | XR_ITS ---
XR abdomen/kub 1V DATE: 10/06/2020 02:23 INDICATION: Right flank pain TECHNIQUE: AP projection, 2 views COMPARISON: 10/06/[address] abdomen pelvis FINDINGS: There is moderately prominent of fecal material in the cecum, ascending and transverse and descending colon. There is gaseous distention of the descending and sigmoid colon and rectum. No gregor l obstruction is evident. Associated as are intact. No visceromegaly is detected. No significant abnormal calcification is noted. IMPRESSION: Prominent amount fecal material and gas in the colon without apparent obstruction Reviewed, dictated and finalized at [facility]. Reviewed, dictated and finalized at location A. IMPRESSION: Prominent amount fecal material and gas in the colon without appare nt obstruction
--- NOTE | ~2020-10-05 | CT_ITS ---
EXAMINATION: CT abdomen pelvis wo con DATE: 10/06/2020 02:19 INDICATION: Right flank pain TECHNIQUE: Computed tomography (CT) of the abdomen and pelvis was performed without intravenous contr ast. Automated exposure control and iterative reconstruction technique were employed. Exam dose: 123 1.48 mGy-cm total exam DLP. COMPARISON: 09/04/2020 CT abdomen pelvis with IV contrast material FINDINGS: There is mild discoid atelectasis and/or scarring at the base of the lingula and left lower lobe. Mild patchy groundglass infiltrate or atelectasis in both lower lobes. Cardiomegaly. No pericardial or pleural effusion. Multiple gallstones. No gallbladder wall thickening or pericholecystic fluid or fat stranding is note d. No bile duct or pancreatic duct dilatation. No hepatic or pancreatic, splenic or adrenal space-occupying mass lesion is detected on this limited noncontrast examination. Bilateral renal cysts, the largest situated on the left, measuring up to 3.6 cm. No urinary tract calculus or hydroureteronephrosis. Normal caliber of the abdominal aorta. No intraperitoneal or retroperitoneal or pelvic mass lesion or adenopathy or ascites. Normal appendix. No bowel obstruction, bowel wall thickening, pneumatosis or intraperitoneal free air . No suspicious osteolytic or osteoblastic lesions. Degenerative changes of the thoracic and lumbar spi ne, including severe degenerative disc disease at L5-S1. IMPRESSION: Cholelithiasis Bilateral renal cysts Reviewed, dictated and finalized at [facility]. Reviewed, dictated and finalized at location A.
[2020-10-05 22:49] VITALS: BP 109/58; PULSE 51; RESP 16; TEMP 36.7; O2SAT 99
[2020-10-05 23:09] LABS: Basophils Percent Auto 0.7 % (0.2-1.2); Eosinophils Absolute Auto 0.4 K/mm3 (0-0.3); Eosinophils Percent Auto 6.4 % (0-4.4); Hematocrit 38.7 % (42.0-52.0); Hemoglobin 12.8 g/dL (14.0-18.0); Immature Granulocyte Absolute 0.01 K/mm3 (0.00-0.031); Immature Granulocyte Percent A 0.2 % (0-0.5); Lymphocytes Absolute Auto 2.04 K/mm3 (0.9-3.2); Lymphocytes Percent Auto 33.7 % (18.3-44.2); Mean Corpuscular HGB Conc 33.1 g/dl (32-36); Mean Corpuscular Volume 96.8 fl (80-100); Mean Platelet Volume 9.6 fl (7.4-10.4); Monocytes Absolute Auto 0.7 K/mm3 (0.1-0.6); Monocytes Percent Auto 10.9 % (2.6-8.5); Neutrophils Absolute Auto 2.9 K/mm3 (1.3-6.7); Neutrophils Percent Auto 48.1 % (45.5-73.1); Platelet Count Result 206 k/mm3 (150-375); Red Cell Distribution Width 12.5 % (11.5-14.5); White Blood Count 6.1 K/mm3 (4.5-10.0)
[2020-10-05 23:22] LABS: Alanine Aminotransferase 14 U/L (4-50); Albumin Level 3.9 g/dL (3.5-5.1); Alkaline Phosphatase 49 U/L (38-126); Anion Gap 8 mmol/L (8-16); Aspartate Amino Transferase 27 U/L (17-59); Bilirubin,Total 0.5 mg/dL (0.2-1.3); Blood Urea Nitrogen 12 mg/dL (9-20); Calcium 9.1 mg/dL (8.4-10.2); Carbon Dioxide 26 mmol/L (22-30); Chloride 102 mmol/L (98-107); Estimated CRCL calculation 93 ml/min; Estimated Glomerular Filt Rate > 60; Glucose 103 mg/dL (65-110); Lipase 69 U/L (23-300); Potassium 4.1 mmol/L (3.4-5.0); Sodium 136 mmol/L (137-145)
[2020-10-06] VITALS (14 sets, daily range): BP systolic 97–110; BP diastolic 51–68; PULSE 38–48; RESP 10–17; TEMP 36.3–36.7; O2SAT 91–99
[2020-10-06 00:45] LABS: Add Urine Microscopic? YES; Appearance Urine Clear (Clear); Bilirubin Urine Negative (Negative); Blood Urine Negative (Negative); Color Urine Yellow (Yellow); Glucose Urine UA Negative (Negative); Ketones Urine Negative (Negative); Leukocyte Esterase Ur Trace LEU/UL (Negative); Mucus Urine Few /lpf; Nitrate Urine Negative (Negative); Protein Urine Negative (Negative); RBC Urine 0-2 /hpf (0-2); Squamous Epithelial Cell Urine Rare /hpf (Few); Urobilinogen Urine Negative mg/dL (<2.0); WBC Urine 0-3 /hpf
--- NOTE | 2020-10-06 02:11 | ED.ABDPAIN ---
HPI - Abdominal Pain General Chief Complaint: Abdominal Pain Stated Complaint: gallbladder issues Time Seen by Provider: 10/06/20 01:56 Source: patient and RN notes reviewed Mode of arrival: ambulatory Limitations: no limitations History of Present Illness HPI narrative: This is a 49 year old male with history of kidney stones and gallstones who presents for evaluation of right lower abdominal pain. He states he has had this pain for 1 week and it is progressively worsening. His pain is constant and it radiates around to his right lower back . His pain is worse with any movement. He has intermittent nausea but denies vomiting, fever, scrotal pain, hematuria. He was evaluated here for similar pain 1 month ago and he was told he had gallstone. He has been taking his hydrocodone with out relief. MD elicited complaint: abdominal pain Related Data Home Medications Medication Instructions Recorded Confirmed gabapentin 10/07/19 06/27/20 hydrocodone-acetaminophen tablet 10/07/19 06/27/20 bupropion HCl 150 mg tablet,12 hr 150 mg PO DAILY 03/29/20 06/27/20 sustained-release trazodone 100 mg tablet 150 mg PO DAILY tablet 05/09/20 06/27/20 albuterol sulfate 90 mcg/actuation 1 puff INHALATION Q4H PRN 06/27/20 06/27/20 aerosol inhaler fluticasone propionate 50 1 inh INHALATION Q12H 06/27/20 06/27/20 mcg/actuation blister powder for inhalation lamotrigine 25 mg tablet 75 mg PO DAILY 06/27/20 06/27/20 lisinopril 20 mg tablet 20 mg PO DAILY 06/27/20 06/27/20 loratadine 10 mg tablet 10 mg PO DAILY 06/27/20 06/27/20 meloxicam 15 mg tablet 15 mg PO DAILY 06/27/20 06/27/20 gabapentin 09/04/20 hydrocodone-acetaminophen tablet 09/04/20 Allergies Allergy/AdvReac Type Severity Reaction Status Date / Time No Known Allergies Allergy Verified 10/06/20 01:44 Review of Systems Review of Systems: All systems reviewed & are unremarkable except as noted in HPI and below Constitutional: Constitutional: Denies chills and Denies fever(s) Gastrointestinal: Gastrointestinal: Reports abdominal pain, Denies diarrhea, Reports nausea and Denies vomiting Genitourinary: Genitourinary: Denies hematuria and Reports oliguria Musculoskeletal: Musculoskeletal: Reports back pain [facility] Past Medical History Medical History Aortic regurgitation Degenerative arthritis Dorsalgia Hypertension Opiate dependence Surgical History Surgical History H/O neck surgery History of carpal tunnel surgery Family History Family History Unknown Heart disease Grandparent Heart disease Mother Hypertension Social History Social History Smoking status: Never smoker Smokeless tobacco user: other Alcohol intake: current Drinks per week: 1 Alcohol use details: [place] Substance use: current Substance use type: marijuana Gender identity (if verbalized by the patient): Male Exam Const: General: alert Orientation/consciousness: patient oriented x3 Eyes: EOM: EOMs intact bilaterally Resp: Effort & Inspection: normal respiratory effort and no retractions Auscultation: clear to auscultation bilaterally Cardio: Rate: regular rate Rhythm: regular rhythm Heart sounds: no murmurs GI: GI Palp: Yes Soft to palpation, Yes Tenderness to palpation present (GI) (RLQ, RUQ, right flank) and No Guarding due to palpation present (GI) Auscultation: bowels sounds not normal : Penis: Yes uncircumcised Testes: Testes normal Skin: General skin exam: normal color Neuro: General: patient oriented x3, moves all extremities and CN's II-XI intact bilaterally Psych: Mental Status: mental status grossly normal Affect: normal affect Course Reevaluation(s) Reevaluation #1: I discussed with patient CT did not s
[2020-10-06] MEDS: LACTATED RINGERS 1,000 ML 999 ML IV CONT (02:24)
[2020-10-06] MEDS: HYDROmorphone HCL INJ (*CRX) 1 MG/ML SYR IV PUSH (02:24)
[2020-10-06] MEDS: ONDANSETRON INJ 4 MG/2 ML VIAL IV PUSH (02:24)
== END 2020-10-06 04:17 | disposition home or self-care (01) ==
PROVIDERS: Emergency Provider General Practice; PCP Family Medicine
DX: K80.20 Calculus of gallbladder without cholecystitis without obstruction (principal); I35.1 Nonrheumatic aortic (valve) insufficiency; M19.90 Unspecified osteoarthritis, unspecified site; I10 Essential (primary) hypertension; N28.1 Cyst of kidney, acquired
CPT/HCPCS: 36415; 74018; 74176; 80053; 81001; 83690; 85025; 96361; 96374; 96375; 99284; J1170; J2405; J7120

== ENCOUNTER 2020-10-25 07:02 | Outpatient (CLI) | payer OTHER, SELFPAY ==
--- NOTE | 2020-10-25 07:42 | ECHO_ITS ---
Patient Info Name: Fabricio Corrigan Age: 49 years : 1970 Gender: Male Ht: 72 in Wt: 254 lbs BSA: 2.46 m2 HR: 60 bpm BP: 144 / 86 mmHg Heart Rhythm: Sinus Rhythm Exam Date: 10/25/2020 11:26 AM Exam Location: [facility] Patient Status: Outpatient Admit Date: 10/25/2020 Staff Ordering Physician: Amado Godfrey DO Directional Survey Drafter: Noris Phillips RDCS Attending Provider: Amado Godfrey DO Exam Type: CA echo doppler color flow Study Info Indications I35.1 - Nonrheumatic aortic (valve) insufficiency Complete two-dimensional, color flow and Doppler transthoracic echocardiogram is performed. Summary 1. Complete two-dimensional, color flow and Doppler transthoracic echocardiogram is performed. 2. Left ventricular chamber dimension is normal. 3. Left ventricular systolic function is normal, estimated at 60-65%. 4. The left ventricular diastolic function is normal. 5. E/e' 9 is minimally elevated. 6. Global longitudinal strain is normal at -20.1%. 7. Left atrial chamber dimension is mildly enlarged. 8. There is mild aortic valve sclerosis. 9. The aortic valve is probably bicuspid. 10. No pulmonary hypertension, estimated pulmonary arterial systolic pressure is 28 mmHg. Left Ventricle E/e' 9 is minimally elevated. Global longitudinal strain is normal at -20.1%. Left ventricular chamber dimension is normal. Left ventricular systolic function is normal, estimated at 60-65%. The left ventricular diastolic function is normal. Right Ventricle Right ventricular chamber dimension is normal. Right ventricular systolic function is normal. Left Atria Left atrial chamber dimension is mildly enlarged. Right Atria Right atrial chamber dimension is normal. Aortic Valve The aortic valve is probably bicuspid. There is mild aortic valve sclerosis. There is no aortic valve stenosis. There is trace aortic valve regurgitation. Pulmonic Valve There is no pulmonic regurgitation. Mitral Valve There is no mitral valve stenosis. There is no mitral valve regurgitation. Tricuspid Valve There is no tricuspid valve regurgitation. No pulmonary hypertension, estimated pulmonary arterial systolic pressure is 28 mmHg. Pericardium/Pleural There is no pericardial effusion. Inferior Vena Cava Normal inferior vena cava with >50% collapse upon inspiration consistent with normal right atrial pressure, 5 mmHg. Aorta The aortic root size at the sinus of Valsalva is normal. Left Ventricular Outflow Tract Name Value Normal LVOT 2D LVOT Diameter 2.7 cm LVOT Doppler LVOT Peak Gradient 3 mmHg LVOT Mean Gradient 2 mmHg LVOT VTI 27 cm LVOT VTI/AV VTI Ratio 0.6 LVOT Stroke Volume 150 ml LVOT CO 6.5 l/min LVOT CI 2.6 l/min/m2 Pulmonic Valve Name Value Normal
== END 2020-10-25 07:03 | disposition home or self-care (01) ==
PROVIDERS: PCP Family Medicine; Visit Provider Internal Medicine Cardiovascular Disease
DX: I35.1 Nonrheumatic aortic (valve) insufficiency (principal)
CPT/HCPCS: 93306

== ENCOUNTER 2020-11-01 13:09 | Outpatient (CLI) | payer OTHER, SELFPAY ==
--- NOTE | 2020-11-03 08:52 | WPDPFTINT ---
PFT Procedure Performed PFT Procedure Performed Spirometry with Pre/Post Bronchodilator Plethysmography (Lung Vol) Diffusing Cap (DLCO) Flow Vol Loop PFT Interpretation This is a pulmonary function test with pre and post-bronchodilator spirometry, plethysmography and diffusing capacity. The test was performed and results interpreted in accordance with the 2019 and 2005 ATS/ERS Task Force guidelines respectively using the Global Lung Function Initiative-2012 reference equations. Patient demonstrated good effort and cooperation. Reproducibility criteria were met. The quality of the pre bronchodilator spirometry maneuver was Grade A and post bronchodilator spirometry maneuver was Grade A. Findings: Spirometry: The contour of the inspiratory and expiratory flow tracing are normal. The pre bronchodilator FVC is 4.32 L, 81% predicted. The pre bronchodilator FEV1 is 3.14 L, 75% predicted. The FEV1: FVC ratio 73%. The post bronchodilator FVC is 4.27 L, representing a 1% decrease. The post bronchodilator FEV1 is 3.44 L, representing a 10% increase. Plethysmography: The total lung capacity is 6.15 L, 83% predicted. The functional residual capacity is 3.03 L, 80% predicted. The residual volume is 1.83 L, 84% predicted. Diffusing capacity: The absolute diffusion capacity is 22.2, 71% predicted. The diffusing capacity corrected for alveolar volume is 4.25, 96% predicted Impression: The spirometry is normal without evidence of an obstructive abnormality. The lung volumes are normal without evidence of and restrictive abnormality. The FEV1 is mildly decreased without an obstructive or restrictive abnormality. This is an abnormal but nonspecific finding. There is no significant improvement after inhaling a single dose of albuterol. The absolute diffusing capacity is mildly decreased and normalizes when corrected for alveolar volume. There are no prior studies for comparison .
== END 2020-11-01 13:10 | disposition home or self-care (01) ==
LOC: ANHPFT 13:13
PROVIDERS: PCP Family Medicine; Visit Provider Internal Medicine Pulmonary Disease
DX: R06.02 Shortness of breath (principal)
CPT/HCPCS: 94060; 94726; 94729

== ENCOUNTER 2021-01-22 22:34 | Emergency (ER) | payer OTHER, SELFPAY ==
--- NOTE | ~2021-01-22 | XR_ITS ---
EXAMINATION: XR hand LT min 3V EXAM DATE: 01/22/2021 23:58 INDICATION: Left hand pain, laceration. TECHNIQUE: Left hand frontal, lateral and oblique projections obtained and reviewed. There is no kylah or study for comparison. FINDINGS: Left metacarpal bones are unremarkable. There are no acute fractures or dislocations ident ified. There is no subcutaneous gas. Soft tissue laceration identified along the thenar eminence. There are no radiopaque foreign bodies. IMPRESSION: Laceration. Reviewed, dictated and finalized at location A. HER IMPRESSION: Laceration.
[2021-01-22 23:26] VITALS: BP 132/88; PULSE 72; RESP 18; TEMP 36.9; O2SAT 96
[2021-01-23] MEDS: TETANUS,DIPHTHERIA,AC PERTUSSIS ADULT (0.5 ML) BOOSTRIX IM (00:01)
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
[2021-01-23 01:03] VITALS: BP 131/80; PULSE 58; RESP 16; O2SAT 96
[2021-01-23] MEDS: HYDROcodone/acetaminophen (*CRX) 5-325 MG TABLET 1 TAB PO (01:11)
== END 2021-01-23 01:30 | disposition home or self-care (01) ==
PROVIDERS: Emergency Provider Family Medicine; PCP Family Medicine
DX: S61.412A Laceration without foreign body of left hand, initial encounter (principal); Z23 Encounter for immunization; X99.8XXA Assault by other sharp object, initial encounter
CPT/HCPCS: 12002; 73130; 90471; 90715; 99283; A9270

== ENCOUNTER 2021-02-18 13:13 | Outpatient (CLI) | payer OTHER, SELFPAY ==
[2021-02-18 13:40] LABS: Basophils Absolute Auto 0.1 K/mm3 (0.0-0.1); Eosinophils Absolute Auto 0.3 K/mm3 (0-0.3); Eosinophils Percent Auto 5.6 % (0-4.4); Hematocrit 43.6 % (42.0-52.0); Hemoglobin 15.1 g/dL (14.0-18.0); Immature Granulocyte Absolute 0.02 K/mm3 (0.00-0.031); Immature Granulocyte Percent A 0.3 % (0-0.5); Lymphocytes Absolute Auto 1.41 K/mm3 (0.9-3.2); Lymphocytes Percent Auto 24.1 % (18.3-44.2); Mean Corpuscular HGB Conc 34.6 g/dl (32-36); Mean Corpuscular Hemoglobin 33.4 pg (26-34); Mean Corpuscular Volume 96.5 fl (80-100); Mean Platelet Volume 9.4 fl (7.4-10.4); Monocytes Absolute Auto 0.6 K/mm3 (0.1-0.6); Monocytes Percent Auto 9.6 % (2.6-8.5); Neutrophils Absolute Auto 3.5 K/mm3 (1.3-6.7); Neutrophils Percent Auto 59.4 % (45.5-73.1); Platelet Count Result 232 k/mm3 (150-375); Red Blood Count 4.52 M/mm3 (4.6-6.20); Red Cell Distribution Width 12.4 % (11.5-14.5); White Blood Count 5.9 K/mm3 (4.5-10.0)
[2021-02-18 13:48] LABS: Total Protein Urine Random 7 mg/dL; Ur Ttl Prot Creatinine Ratio 0.03 mg/mg (0-0.20)
[2021-02-18 13:53] LABS: Microalbumin Urine Random 41.9 mg/L (0-16.7)
[2021-02-18 13:54] LABS: Add Urine Microscopic? NO; Appearance Urine Clear (Clear); Bilirubin Urine Negative (Negative); Blood Urine Negative (Negative); Color Urine Yellow (Yellow); Glucose Urine UA Negative (Negative); Ketones Urine Negative (Negative); Leukocyte Esterase Ur Negative LEU/UL (NEGATIVE); Nitrate Urine Negative (Negative); Protein Urine Negative (Negative); Specific Grav Ur 1.019 (1.001-1.035); Urobilinogen Urine Negative mg/dL (<2.0)
[2021-02-18 14:00] LABS: Alanine Aminotransferase 15 U/L (4-50); Albumin Level 4.6 g/dL (3.5-5.1); Alkaline Phosphatase 56 U/L (38-126); Anion Gap 6 mmol/L (8-16); Aspartate Amino Transferase 23 U/L (17-59); Blood Urea Nitrogen 10 mg/dL (9-20); Calcium 9.5 mg/dL (8.4-10.2); Carbon Dioxide 27 mmol/L (22-30); Chloride 101 mmol/L (98-107); Cholesterol 163 mg/dL (0-200); Estimated Glomerular Filt Rate > 60; Glucose 97 mg/dL (65-110); HDL Direct 53 mg/dL; Phosphorus 2.8 mg/dL (2.5-4.5); Potassium 4.4 mmol/L (3.4-5.0); Sodium 134 mmol/L (137-145); Triglycerides 81 mg/dL (<150)
[2021-02-18 14:11] LABS: LDL Cholesterol Direct 88 mg/dL
[2021-02-18 14:16] LABS: Free T4 Free Thyroxine 1.07 ng/mL (0.78-2.19)
[2021-02-18 14:30] LABS: Prostate Specific Antigen 1.8 ng/mL (< OR = 4.0); Thyroid Stimulating Hormone 0.796 uIU/mL (0.465-4.680); Total Triiodothyronine (T3) 1.06 NG/ML (0.97-1.69)
== END 2021-02-18 13:14 | disposition home or self-care (01) ==
PROVIDERS: PCP Family Medicine; Visit Provider Internal Medicine Nephrology
DX: Z12.5 Encounter for screening for malignant neoplasm of prostate (principal); N28.0 Ischemia and infarction of kidney; I10 Essential (primary) hypertension
CPT/HCPCS: 36415; 80053; 80061; 80069; 81003; 82043; 82570; 84153; 84156; 84439; 84443; 84480; 85025; G0103

== ENCOUNTER 2021-06-30 09:45 | Outpatient (CLI) | payer OTHER, SELFPAY ==
--- NOTE | ~2021-06-30 | MR_ITS ---
EXAMINATION: MRA brain wo con DATE: 06/30/2021 10:33 INDICATION: Polycystic kidney disease. Headache. TECHNIQUE: Magnetic resonance angiography (MRA) of the brain was performed without intravenous contra st with T1-weighted SPGR by the 3D [id number] technique. Maximum intensity projection 3D-reconstr uctions were obtained. COMPARISON: None. FINDINGS: Right vertebral artery is dominant. There is no significant stenosis of basilar artery or the posteri or cerebral arteries. There is no significant stenosis of the intracranial internal carotid arteries or anterior or middle cerebral arteries. Anterior communicating artery is normal. The posterior commu nicating arteries are normal. There is no aneurysm. IMPRESSION: 1. Normal MRA. No aneurysm. Reviewed, dictated and finalized at location B. IMPRESSION: 1. Normal MRA. No aneurysm.
== END 2021-06-30 09:46 | disposition home or self-care (01) ==
PROVIDERS: PCP Family Medicine; Visit Provider Internal Medicine Nephrology
DX: N28.1 Cyst of kidney, acquired (principal); R51.9 Headache, unspecified
CPT/HCPCS: 70544

== ENCOUNTER 2022-04-12 16:44 | Emergency (ER) | payer OTHER, SELFPAY ==
[2022-04-12 16:45] VITALS: BP 107/65; PULSE 64; RESP 14; TEMP 37; O2SAT 99
--- NOTE | 2022-04-12 20:44 | ED.GENADULT ---
HPI - General Adult General Chief complaint: Skin/Abscess/Foreign Body Stated complaint: RIGHT KNEE INFECTION Time Seen by Provider: 04/12/22 20:35 History of Present Illness HPI narrative: 51-year-old male with history of MRSA abscesses approximately 7 to 8 years ago presenting the emergency department for evaluation of of a recurrent infection to his right knee. Patient states approximately 2 weeks ago he had some cutaneous abscess develop on the right knee. Patient did follow-up with his primary care physician was started on Keflex on the . Patient states he did complete these antibiotics. Patient states over the last 3 days he developed 2 new abscesses to the right aspect of his right knee. Patient denies any pain of the joint itself. Patient is nondiabetic. Patient states he only has abscesses that developed on the right knee. Patient states he does not work on his knees. 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 on the affected knee Related Data Home Medications Medication Instructions Recorded Confirmed trazodone 100 mg tablet 150 mg PO DAILY 05/09/20 12/02/20 lamotrigine 25 mg tablet 75 mg PO DAILY 06/27/20 12/02/20 lisinopril 20 mg tablet 20 mg PO DAILY 06/27/20 12/02/20 loratadine 10 mg tablet 10 mg PO DAILY 06/27/20 12/02/20 meloxicam 15 mg tablet 15 mg PO DAILY 06/27/20 12/02/20 gabapentin 300 mg capsule 09/04/20 12/02/20 bupropion HCl 150 mg tablet,12 hr 300 mg PO DAILY 12/02/20 12/02/20 sustained-release Allergies Allergy/AdvReac Type Severity Reaction Status Date / Time No Known Allergies Allergy Verified 04/12/22 20:50 Review of Systems Review of Systems: CONSTITUTIONAL: Denies fever, chills, or sweats. EYES: Denies visual changes, redness, or discharge. ENT: Denies rhinorrhea, congestion, sore throat, or otalgia. CARDIOVASCULAR: Denies chest pain, palpitations, or edema. RESPIRATORY: Denies cough or dyspnea. GASTROINTESTINAL: Denies abdominal pain, nausea, vomiting, or diarrhea. GENITOURINARY: Denies dysuria or hematuria. SKIN: See HPI. MUSCULOSKELETAL: Denies back pain, joint pain, or myalgia. NEUROLOGIC: Denies headache, numbness, or weakness. [facility] Past Medical History Medical History Aortic regurgitation Degenerative arthritis Dorsalgia Hypertension Opiate dependence Surgical History Surgical History H/O neck surgery History of carpal tunnel surgery Family History Family History Unknown Heart disease Grandparent Heart disease Mother Hypertension Social History Social History Smoking status: Never smoker Smokeless tobacco user: other Alcohol intake: current Drinks per week: 1 Alcohol use details: Finisar Substance use: current Substance use type: marijuana Gender identity (if verbalized by the patient): Male Exam Narrative: APPEARANCE: Well appearing, no pain, no distress, well-nourished. HEAD: normocephalic, atraumatic. EYES: PERRLA/EOMI, conjunctivae clear. NOSE: Normal no drainage RESPIRATORY: Airway patent, respirations nonlabored. Clear to auscultation bilaterally, no rales, rhonchi, wheezing. CARDIOVASCULAR: Regular rate and rhythm without murmurs rubs or gallops. ABDOMINAL: Soft, nontender, nondistended, normal bowel sounds MUSCULOSKELETAL: Moves all extremities. Strength/ROM intact, No edema, No calf tenderness. NEURO: Alert. Cranial nerves II through XII intact. Good gait. Good coordination SKIN: Small abscess to right lateral knee. This is cutaneous this is nonfluctuant. No concern of septic knee. Normal range of motion of the right knee. No significant erythema and no edema PSYCHIATRIC: Normal affect/mood. Course Course Emergency Course: Patient appears to have a cutaneous ab
[2022-04-12 20:49] VITALS: PULSE 52; RESP 16; O2SAT 100
[2022-04-12 20:51] VITALS: BP 101/66
[2022-04-12] MEDS: CLINDAMYCIN HCL 150 MG CAP 300 MG PO (20:51)
== END 2022-04-12 21:00 | disposition home or self-care (01) ==
LOC: ANHED 20:54
PROVIDERS: Emergency Provider Emergency Medicine; PCP Family Medicine
DX: L02.415 Cutaneous abscess of right lower limb (principal); I10 Essential (primary) hypertension; I35.1 Nonrheumatic aortic (valve) insufficiency; M19.90 Unspecified osteoarthritis, unspecified site; Z86.14 Personal history of Methicillin resistant Staphylococcus aureus infection
CPT/HCPCS: 99283; A9270

== ENCOUNTER 2022-05-27 14:51 | Outpatient (CLI) | payer OTHER, SELFPAY ==
--- NOTE | ~2022-05-27 | CT_ITS ---
Clinical Indication: Aortic aneurysm CT Scan of the Chest with Contrast: Technique: Contiguous sections were acquired throughout the chest after intravenous administration of 75 cc of Omnipaque 350. Dose reduction technique was used on this scan by utilizing automated exposu re control and iterative reconstruction technique. The dose-length product (DLP) was 488.67 mGy-cm. Findings: There is no evidence of any significant mediastinal, hilar or axillary lymphadenopathy. There is no f illing defect in the pulmonary arterial tree to suggest pulmonary embolus. Ascending aorta measures u p to 4.2 cm in maximum diameter. Descending thoracic and visualized upper abdominal aorta are unremar kable. No aortic dissection evident. There is no evidence of pleural or pericardial effusion. There are minimal dependent atelectatic changes. 4 mm pulmonary nodule noted the lingula (axial image 58). Images through the upper abdomen reveal gallstones. Impression: Mild ascending aortic aneurysm which measures 4.2 cm in maximum diameter. 4 mm lingular pulmonary nodule. According to Fleischner Society criteria, for a low-risk patient, no further follow-up required. For a high-risk patient, consider 12 month follow-up CT. Cholelithiasis. Clear lungs. Reviewed, dictated and finalized at location . Impression: Mild ascending aortic aneurysm which measures 4.2 cm in maximum diameter. 4 mm lingular pulmonary nodule. According to Fleischner Society criteria, for a low-risk patient, no further follow-up required. For a high-risk patient, cons ider 12 month follow-up CT. Cholelithiasis. Clear lungs.
[2022-05-27 15:28] LABS: Estimated Glomerular Filt Rate > 60
== END 2022-05-27 14:52 | disposition home or self-care (01) ==
PROVIDERS: PCP Family Medicine; Visit Provider Internal Medicine Cardiovascular Disease
DX: I71.20 Thoracic aortic aneurysm, without rupture, unspecified (principal); K80.20 Calculus of gallbladder without cholecystitis without obstruction; R91.1 Solitary pulmonary nodule
CPT/HCPCS: 71260; Q9967

== ENCOUNTER 2022-10-19 14:08 | Outpatient (CLI) | payer OTHER, SELFPAY ==
[2022-10-19 15:02] LABS: Basophils Absolute Auto 0.1 K/mm3 (0.0-0.1); Basophils Percent Auto 0.9 % (0.2-1.2); Eosinophils Absolute Auto 0.3 K/mm3 (0-0.3); Eosinophils Percent Auto 5.5 % (0-4.4); Hematocrit 41.4 % (42.0-52.0); Hemoglobin 13.7 g/dL (14.0-18.0); Immature Granulocyte Absolute 0.01 K/mm3 (0.00-0.031); Immature Granulocyte Percent A 0.2 % (0-0.5); Lymphocytes Absolute Auto 1.53 K/mm3 (0.9-3.2); Lymphocytes Percent Auto 26.2 % (18.3-44.2); Mean Corpuscular HGB Conc 33.1 g/dl (32-36); Mean Corpuscular Hemoglobin 32.6 pg (26-34); Mean Corpuscular Volume 98.6 fl (80-100); Mean Platelet Volume 9.3 fl (7.4-10.4); Monocytes Absolute Auto 0.6 K/mm3 (0.1-0.6); Monocytes Percent Auto 9.8 % (2.6-8.5); Neutrophils Absolute Auto 3.4 K/mm3 (1.3-6.7); Neutrophils Percent Auto 57.4 % (45.5-73.1); Platelet Count Result 251 k/mm3 (150-375); Red Cell Distribution Width 12.7 % (11.5-14.5); White Blood Count 5.8 K/mm3 (4.5-10.0)
[2022-10-19 17:21] LABS: Iron 103 ug/dL (49-181)
[2022-10-19 17:23] LABS: Alanine Aminotransferase 17 U/L (6-50); Albumin Level 4.3 g/dL (3.5-5.1); Alkaline Phosphatase 61 U/L (38-126); Anion Gap 8 mmol/L (8-16); Aspartate Amino Transferase 33 U/L (17-59); Bilirubin,Total 0.6 mg/dL (0.2-1.3); Blood Urea Nitrogen 9 mg/dL (9-20); Calcium 9.3 mg/dL (8.4-10.2); Carbon Dioxide 28 mmol/L (22-30); Chloride 103 mmol/L (98-107); Cholesterol 161 mg/dL (0-200); Estimated Glomerular Filt Rate > 60; Glucose 89 mg/dL (65-110); HDL Direct 45 mg/dL; Potassium 3.9 mmol/L (3.4-5.0); Sodium 139 mmol/L (137-145); Triglycerides 88 mg/dL (<150)
[2022-10-19 17:34] LABS: LDL Cholesterol Direct 85 mg/dL
[2022-10-19 17:38] LABS: Percent Iron Saturation 31 % (20-50)
[2022-10-19 17:39] LABS: Free T4 Free Thyroxine 1.23 ng/mL (0.78-2.19)
[2022-10-19 17:55] LABS: Prostate Specific Antigen 2.2 ng/mL (< OR = 4.0); Total Triiodothyronine (T3) 1.28 NG/ML (0.97-1.69)
[2022-10-19 18:30] LABS: Folic Acid 3.9 ng/mL (2.76->20)
[2022-10-22 07:36] LABS: FSH 3.1 mIU/mL (1.6-8.0); LH 4.2 mIU/mL (1.5-9.3)
[2022-10-22 13:15] LABS: Vitamin B1 8 nmol/L (8-30)
[2022-10-22 13:56] LABS: Vitamin B6 4.2 ng/mL (2.1-21.7)
[2022-10-22 16:03] LABS: Testosterone Free 61.7 pg/mL (35.0-155.0); Testosterone Total 649 ng/dL (250-1100)
[2022-10-23 12:08] LABS: Alpha-Tocopherol 10.4 mg/L (5.7-19.9); Beta-Gamma Tocopherol <1.0 mg/L (<=4.3)
[2022-10-25 00:17] LABS: Vitamin B2 7.5 nmol/L (6.2-39.0)
== END 2022-10-19 14:09 | disposition home or self-care (01) ==
PROVIDERS: PCP Family Medicine; Visit Provider Family Medicine
DX: R53.83 Other fatigue (principal); R53.1 Weakness; R41.3 Other amnesia; E66.9 Obesity, unspecified; I10 Essential (primary) hypertension; R68.82 Decreased libido; J44.9 Chronic obstructive pulmonary disease, unspecified; R41.840 Attention and concentration deficit
CPT/HCPCS: 36415; 80053; 80061; 82607; 82728; 82746; 83001; 83002; 83540; 83550; 84153; 84207; 84252; 84402; 84403; 84425; 84439; 84443; 84446; 84480; 85025

== ENCOUNTER 2023-09-13 21:21 | Emergency (ER) | payer OTHER, SELFPAY ==
[2023-09-13 21:25] VITALS: BP 130/76; PULSE 79; RESP 18; TEMP 36.2; O2SAT 99
--- NOTE | 2023-09-13 21:41 | ED.SKABFB ---
HPI - Skin/Abscess/Foreign Bdy General Chief complaint: Skin/Abscess/Foreign Body Stated complaint: cyst on neck Time Seen by Provider: 09/13/23 21:39 History of Present Illness HPI narrative: Patient is a 52-year-old male here with an abscess to the back of his neck which began a few months ago and significantly worsened yesterday. He states that yesterday it started spontaneously draining while he was at work. Today he was at work with a Band-Aid over his neck and noted it was very painful with any pressure or clothing rubbing the top of his neck. Family at bedside noted some redness that began today surrounding the abscess. They are unsure if it is due to the bandage that was placed on his neck or a developing cellulitis. He denies any fever or chills. He denies any difficulty breathing or swallowing. He does note a history of prior MRSA many years ago, has not recently been on antibiotics. Related Data Home Medications Medication Instructions Recorded Confirmed trazodone 100 mg tablet 150 mg PO DAILY 05/09/20 12/02/20 lamotrigine 25 mg tablet 75 mg PO DAILY 06/27/20 12/02/20 lisinopril 20 mg tablet 20 mg PO DAILY 06/27/20 12/02/20 loratadine 10 mg tablet 10 mg PO DAILY 06/27/20 12/02/20 meloxicam 15 mg tablet 15 mg PO DAILY 06/27/20 12/02/20 gabapentin 300 mg capsule 09/04/20 12/02/20 bupropion HCl 150 mg tablet,12 hr 300 mg PO DAILY 12/02/20 12/02/20 sustained-release Allergies Allergy/AdvReac Type Severity Reaction Status Date / Time No Known Allergies Allergy Verified 09/13/23 21:26 Review of Systems Review of Systems: All systems reviewed & are unremarkable except as noted in HPI and below PMFSH Past Medical History Medical History Aortic regurgitation Degenerative arthritis Dorsalgia Hypertension Opiate dependence Surgical History Surgical History H/O neck surgery History of carpal tunnel surgery Family History Family History Unknown Heart disease Grandparent Heart disease Mother Hypertension Social History Social History Smoking status: Never smoker Smokeless tobacco user: other Alcohol intake: current Drinks per week: 1 Alcohol use details: Baccaratfanny Substance use: current Substance use type: marijuana Gender identity (if verbalized by the patient): Male Exam Narrative: GENERAL: Well-appearing, well-nourished, and in no acute distress. HEAD: Normocephalic, atraumatic. EYES: PERRLA and EOMI. ENT: Nares clear. Mucous membranes moist. NECK: Supple. CHEST: Clear to auscultation. No respiratory distress. HEART: Regular rate and rhythm. Normal peripheral pulses. EXTREMITIES: Normal range of motion. No edema. SKIN: Warm, dry, no rash. patient has a 2 x 2 cm abscess with overlying erythema and fluctuance as well as a crusting scab over the posterior neck. Mild surrounding erythema with a clearing around the wound itself suggestive of a possible contact dermatitis over cellulitis. Course Course Emergency Course: Chart review performed. Patient here with cyst and possible cellulitis of neck x several months. It appears he was seen here in this ER in March 2022 for abscess on right knee, they noted history of MRSA abscesses prior. He was discharged on clindamycin at that time. Patient seen evaluated, nontoxic appearing. He appears to have a focal area of fluctuance suggestive of an abscess on it back of his neck. Will do bedside ultrasound, plan on incision and drainage and starting patient on antibiotics. Patient agreeable to workup and plan. Bedside ultrasound done by myself shows roughly 1 x 2 cm abscess pocket. Incision and drainage performed by myself at bedside. Antibiotic ointment and sterile gauze placed over top. Will sta
[2023-09-13 23:11] VITALS: BP 112/69; PULSE 65; O2SAT 96
[2023-09-13] MEDS: HYDROcodone/acetaminophen (*CRX) 5-325 MG TABLET 1 TAB PO (23:59)
== END 2023-09-14 01:15 | disposition home or self-care (01) ==
PROVIDERS: Emergency Provider Student in an Organized Health Care Education/Training Program; PCP Family Medicine
DX: L02.11 Cutaneous abscess of neck (principal); I10 Essential (primary) hypertension
CPT/HCPCS: 10060; 99283; A9270

== ENCOUNTER 2023-10-01 08:28 | Outpatient (CLI) | payer OTHER, SELFPAY ==
--- NOTE | 2023-10-01 08:31 | ECHO_ITS ---
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 Summary 1. Complete two-dimensional, color flow and Doppler transthoracic echocardiogram is performed. 2. Left ventricular chamber dimension is normal. 3. Left ventricular systolic function is normal, estimated at 55-60%. 4. There is mild concentric increased left ventricular wall thickness. 5. The left ventricular diastolic function is normal. 6. E/e' 9 is minimally elevated. 7. There is moderate aortic valve sclerosis. 8. There is mild to moderate aortic valve regurgitation. 9. There is trace mitral valve regurgitation. 10. No pulmonary hypertension, estimated pulmonary arterial systolic pressure is 16 mmHg. 11. The prox ascending aorta size is moderately dilated at 4.8 cm. 12. The aortic root size at the sinus of Valsalva is borderline dilated at 4.1 cm. 13. Dilated inferior vena cava with >50% collapse upon inspiration consistent with elevated right atrial pressure, 10 mmHg. Left Ventricle E/e' 9 is minimally elevated. Left ventricular chamber dimension is normal. Left ventricular systolic function is normal, estimated at 55-60%. There is mild concentric increased left ventricular wall thickness. The left ventricular diastolic function is normal. Right Ventricle Right ventricular systolic function is normal and with normal TAPSE 2.0 cm. Right ventricular chamber dimension is normal. Left Atria Left atrial chamber dimension is normal. Right Atria Right atrial chamber dimension is normal. Aortic Valve The aortic valve is trileaflet. There is moderate aortic valve sclerosis. There is no aortic valve stenosis. There is mild to moderate aortic valve regurgitation. Pulmonic Valve There is no pulmonic regurgitation. Mitral Valve There is no mitral valve stenosis. There is trace mitral valve regurgitation. Tricuspid Valve There is no tricuspid valve regurgitation. No pulmonary hypertension, estimated pulmonary arterial systolic pressure is 16 mmHg. Pericardium/Pleural There is no pericardial effusion. Inferior Vena Cava Dilated inferior vena cava with >50% collapse upon inspiration consistent with elevated right atrial pressure, 10 mmHg. Aorta The prox ascending aorta size is moderately dilated at 4.8 cm. The aortic root size at the sinus of Valsalva is borderline dilated at 4.1 cm. Left Ventricular Outflow Tract Name Value Normal LVOT 2D LVOT Diameter 2.9 cm LVOT Doppler LVOT Peak Gradient 3 mmHg LVOT Mean Gradient 2 mmHg LVOT VTI 19 cm LVOT VTI/AV VTI Ratio
== END 2023-10-01 08:29 | disposition home or self-care (01) ==
PROVIDERS: PCP Family Medicine; Visit Provider Internal Medicine Cardiovascular Disease
DX: I35.8 Other nonrheumatic aortic valve disorders (principal); I35.1 Nonrheumatic aortic (valve) insufficiency
CPT/HCPCS: 93306

== ENCOUNTER 2023-11-05 06:40 | Outpatient (CLI) | payer OTHER, SELFPAY ==
--- NOTE | ~2023-11-05 | CT_ITS ---
CTA chest Ordering provider: Amado Godfrey DO History: 52 years Male with . I71.2 - Thoracic aortic aneurysm, without rupture . Comparison: May 27, 2022 Technique: CT chest with IV contrast. Radiation reduction technique utilized. The dose-length product was 957.17 mGy-cm. 100 mL Omnipaque 350 was given IV. Findings: VISUALIZED THORACIC INLET: Normal. MEDIASTINUM: Aorta/coronary arteries: Aneurysmal dilatation of the ascending aorta is seen which measures 4.6 cm w hich is slightly increased compared to previous study. Mild atheromatous disease. Heart/other: The heart is not enlarged. Lymph nodes: No mediastinal or hilar adenopathy. LUNGS: 5 mm nodule is seen in the left upper lobe unchanged from previous examination. No pulmonary m asses. No infiltrates or effusions. No pneumothorax. VISUALIZED UPPER ABDOMEN: Cholelithiasis. Mild fat infiltration. Left renal cyst of 4.6 cm. Small rig ht renal cysts. Otherwise, the visualized upper abdomen is normal. MUSCULOSKELETAL: Soft tissues: The superficial soft tissues are normal. Bones: Age appropriate degenerative changes of the spine. IMPRESSION: Ascending thoracic aneurysmal dilatation measuring 4.6 cm. No evidence of dissection. No acute cardiopulmonary pathology. Cholelithiasis. Bilateral renal cysts larger on the left side. Reviewed, dictated and finalized at location A. IMPRESSION: Ascending thoracic aneurysmal dilatation measuring 4.6 cm. No evidence of disse ction. No acute cardiopulmonary pathology. Cholelithiasis. Bilateral renal cysts larger on the left side.
[2023-11-05 07:24] LABS: Estimated Glomerular Filt Rate 58
== END 2023-11-05 06:41 | disposition home or self-care (01) ==
PROVIDERS: PCP Family Medicine; Visit Provider Internal Medicine Cardiovascular Disease
DX: I71.20 Thoracic aortic aneurysm, without rupture, unspecified (principal); K80.20 Calculus of gallbladder without cholecystitis without obstruction; N28.1 Cyst of kidney, acquired
CPT/HCPCS: 71275; Q9967

== ENCOUNTER 2024-10-21 09:25 | Outpatient (CLI) | payer OTHER, SELFPAY ==
--- OUTSIDE RECORDS SUMMARY | 2024-10-21 09:29 | XMS_ITS ---
Author Organization [facility] Address [address] [place] [address] Care Team Providers Care Banking Center Manager Name Role Phone Nae Hernandez Primary Care Provi talha [phone] Marina Aleman Unavailable [phone] REASON FOR VISIT mary aMdrid having SI ideations Medications Medication SIG (Take, [...] Male Encounters Encounter Location Date Provider Diagnosis [address] [place] [address] 10/13/2023 Marina Aleman Plan Of Treatment No Information Progress Notes * Fabricio LEIGHDOB: [birth year] (53 yo M)Acc No.[id number]:10/13/2023 UNLOCKED PROGRESS NOTE Patient: Fabricio EDWARDS Provider: Antonio Aleman DNP, PMHNP-BC, OUTSOLE MOLDER :1970 A ge:52 Y S ex:Male Date:10/13/2023 Address:[facility] [place], [place] [id number] Pcp:Nae Phillips Subjective: * Chief Complaints: * 1 . NEW EVAL-per Shawanda Hahn,ct having SI ideations. * HPI: D o Not Use CSSRS Interpretation and Follow Up Plan: CSSRS Interpretation and Follow Up Plan. 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 [...] * Electronic signature of Jillian Aleman on 10/21/2024 at 09:29 AM CDT Sign off status: Pending * Provider: Antonio Aleman DNP, PMHNP-BC, OUTSOLE MOLDER Date: 10/13/2023 Generated for Printing/Faxing/eTransmitting on: 10/21/2024 09:29 AM CDT History and Physical Notes * HPI [...]
--- OUTSIDE RECORDS SUMMARY | 2024-10-21 09:29 | XMS_ITS | Clinical Summary ---
Author Organization [facility] Address [address] [place] [place] [address] Care Team Providers Care Window Air Conditioner Installer Name Role Phone Ronal Milner MD Primary Care Provider [phone] Source Comments [facility],non-owned Affiliates and Associated Physician Practices is amultiple site organization consisting of ambulatory clinics and hospital sitesin [place], [place], [place] and [place]. This disclosure is being madepursuant to the Care Everywhere program and may not contain all information available regarding this patient. Last updated 17.[facility] [employer] Allergies No known active allergies Medications * Be aware that medications may not be up to date on this document. Alwaysverify current medications with the patient. albuterol HFA (PROVENTIL;VENTOL IN;PROAIR) 108 (90 Base) MCG/ACT inhaler Inhale 2 (two) puffs by mouth Active FLOVENT HFA 110 MCG/ACT inhaler INL 1 PUFF PO BID 0 Active HYDROcodone-aceta minophen (NORCO) 10-325 MG tablet Take 1 tablet every 4 hours as needed for pain 8 Active lamoTRIgine (LaMICtal) 200 MG tabletIndications :Bipolar affective disorder, current episode depressed, current episode severity unspecified (HCC) Take 0.5 (one-half) tablet by mouth once daily Active gabapentin (Neurontin) 600 MG tabletIndications :Chronic pain of right knee Take 1 (one) tablet by mouth 3 times daily 4 Active cyclobenzaprine (Flexeril) 5 MG tabletIndications :Chronic pain of right knee TAKE 1 TABLET BY MOUTH FOUR TIMES A DAY NEEDED 2 Active amphetamine-dextr oamphetamine XR 24hr (Adderall XR) 30 MG capsuleIndication s:Bipolar affective disorder, current episode depressed, current episode severity unspecified (HCC) TAKE 1 CAPSULE BY MOUTH EVERY DAY IN THE MORNING 2 Active meloxicam (Mobic) 15 MG tabletIndications :Chronic pain of right knee Take 1 (one) tablet by mouth once daily 90 tablet 3 4 Active lisinopril (Prinivil; Zestril) 20 MG tabletIndications :Essential hypertension Take 1 (one) tablet by mouth once daily 90 tablet 3 4 Active buPROPion XL 24hr (Wellbutrin-XL) 300 MG tabletIndications :Bipolar affective disorder, current episode depressed, current episode severity unspecified (HCC) Take 1 (one) tablet by mouth once daily 90 tablet 3 4 Active Active Problems Problem Noted Date Diagnosed Date Multiple renal cysts 06/12/2021 06/18/2023 Carpal tunnel syndrome, bilateral 12/16/2017 06/18/2023 Overview (06/18/2023): Last Assessment & Plan: The patient has had excellent recover from his right carpal tunnel surgery and wants to schedule his left as soon as possible. He was advised risks were essentially the same as a went through with the right side. We will plan on performing this under regional anesthesia if tolerated. He is to gradually increase activities on the right hand but avoid heavy lifting for several more weeks. Scar massage may be helpful. Rotator cuff tendinitis, right 11/01/2017 0 06/18/2023 Fusion of spine of cervical region 11/01/2017 06/18/2023 Immunizations Immunization Administration Dates Next Due INFLUENZA VACCINE, CELL CULT URE, QUADR. (FLUCELVAX QUADRIVALENT; 6MO+) (CCIIV4) 01/25/2021 INFLUENZA VACCINE, CELL CULT URE, QUADR. (FLUCELVAX QUADRIVALENT; 6MO+), 0.5 ML (CCIIV4) 02/21/2018 TDAP, HISTORIC VACCINE 01/23/2021,02/21/2018 Family History Medical History Relation Name Comments Alcohol abuse Father Cirrhosis Father Alcohol abuse Maternal Grandfather Arthritis - Rheumatoid Maternal Grandfather Hyperlipidemia Maternal Grandfather Arthritis - Rheumatoid Maternal Grandmother Glaucoma Maternal Grandmother Hyperlipidemia Maternal Grandmother Arthritis - Rheumatoid Mother Relation Name Status Comments Father Maternal Grandfather Maternal Grandmother Mother Alive Sister Alive Social History Tobacco Use Types Packs/Day Years Used Date Smoking Tobacco: Never Smokeless Tobacco: Never Alcohol Use Standard Drinks/Week Comments Not Currently 0 (1 standard drink = 0.6 oz pure alcohol) recovering alcoholic for 20 years PHQ-2 Answer Date Recorded Patient Health Questionnaire-2 Score 3 06/18/2023 Sex and Gender Information Value Date Recorded Sex Assigned at Male 06/19/2023 11:54 PM CDT Legal Sex Male 5:53 AM ACLS NURSE Gender Identity Male 06/19/2023 11:54 PM CDT Sexual Orientation Straight 06/19/2023 11 :54 PM CDT Last Filed Vital Signs Vital Sign Reading Time Taken Comments Blood Pressure 147/96 06/18/2023 10:28 AM CDT Pulse 65 06/18/2023 10:28 AM CDT Temperature 36.6 C (97.8 F) 06/18/2023 10:28 AM CDT Respiratory Rate 15 04/10/2022 12:22 PM ACLS NURSE Oxygen Saturation 97% 06/18/2023 10:28 AM CDT Inhaled Oxygen Concentration - - Weight 111.1 kg (245 lb) 06/18/2023 10:28 AM CDT Height 182.9 cm (6') 06/18/2023 10:28 AM CDT Body Mass Index 33.23 06/18/2023 10:28 AM CDT Plan of Treatment Health Maintenance Due Date Last Done Comments COLOGUARD (AGES 45-75) - COL ON CA SCREENING 1968 COLON MONITORING 1968 COLONOSCOPY - COLON CA SCREENING 1968 CT COLONOGRAPHY - COLON CA SCREENING 1968 Colorectal Cancer Screening 1968 FIT - COLON CA SCREENING 1968 FLEX SIG - COLON CA SCREENING 1968 LIPID TESTING 1968 HIV SCREENING 11/16/1983 HEPATITIS C SCREENING 11/11/1986 HEPATITIS B VACCINE (1 of 3 - 19+ 3-dose series) 11/16/1987 PNEUMOCOCCAL VACCINE 50+ (1 of 1 - PCV) 2018 ZOSTER VACCINE (1 of 2) 2018 SCREENING FOR DIABETES 06/18/2023 COVID-19 VACCINE (4 - 2023-2 5 season) 2023 01/25/2021, 07/03/2020, 06/12/2020 DEPRESSION SCREENING 03/15/2024 06/18/2023 INFLUENZA VACCINE (#1) 2024 , 02/21/2018 DTAP/TDAP/TD VACCINES (3 - T d or Tdap) 01/23/2031 01/23/2021, 02/21/2018 HIB VACCINE Aged Out No longer eligi ble based on patient's age to complete this topic HPV VACCINE Aged Out No longer eligi ble based on patient's age to complete this topic MENINGOCOCCAL (Group B) VACCINE SHARED DECISION-MAKING Aged Out No longer eligible based on patient's age to complete this topic MENINGOCOCCAL GROUPS A/C/Y/W VACCINE Aged Out No longer eligible b ased on patient's age to complete this topic Insurance [id number], [place] [facility] Care Teams Window Air Conditioner Installer Relationship Specialty Start Date End Date Ronal Milner MD [address] [place] [address] PCP - General 10/26/19
--- OUTSIDE RECORDS SUMMARY | 2024-10-21 09:29 | XMS_ITS | Clinical Summary ---
Author Organization [facility] Address [address] [place] [address] Phone Care Team Providers Care Boat Camp Operator Name Role Phone Jing Shah NP Primary Care Provider [phone] Allergies No known active allergies Medications HYDROcodone-humberto taminophen 10-325 MG per tablet Take 1 tablet every 4 hours as needed for pain 01/14/2018 Active lisinopril (PRINIVIL) 20 MG tablet Take 20 mg by mouth daily Active meloxicam (MOBIC) 15 MG tablet Take 15 mg by mouth 1 (one) time each day Active lamoTRIgine (LaMICtal) 200 MG tablet Take 200 mg by mouth 1 (one) time each day Active buPROPion XL (WELLBUTRIN XL) 300 MG 24 hr tablet Take 300 mg by mouth 1 (one) time each day 05/25/2021 Active cyclobenzaprine (FLEXERIL) 5 MG tablet TAKE 1 TABLET BY MOUTH FOUR TIMES A DAY NEEDED 06/07/2021 Active gabapentin (NEURONTIN) 600 MG tablet Take 600 mg by mouth 3 (three) times a day 05/06/2021 Active traZODone (DESYREL) 150 MG tablet TAKE 1 TABLET BY MOUTH EVERY DAY AT BEDTIME NEEDED 04/29/2021 Active gabapentin (NEURONTIN) 300 MG capsule Take 300 mg by mouth 3 (three) times a day Active Active Problems Problem Noted Date Diagnosed Date Multiple renal cysts 06/12/2021 Family History Medical History Relation Comments Kidney disease Neg Hx Social History Tobacco Use Types Packs/Day Years Used Date Smoking Tobacco: Former Smokeless Tobacco: Never Alcohol Use Standard Drinks/Week Comments Not Currently 0 (1 standard drink = 0.6 oz pur e alcohol) Sex and Gender Information Value Date Recorded Sex Assigned at Not on file Legal Sex Male 1:32 PM MDT Gender Identity Not on file Sexual Orientation Not on file Last Filed Vital Signs Vital Sign Reading Time Taken Comments Blood Pressure 98/60 06/18/2021 10:43 AM CDT Pulse 60 06/18/2021 10:43 AM CDT Temperature 35.4 C (95.8 F) 06/18/2021 10:43 AM CDT Respiratory Rate - - Oxygen Saturation - - Inhaled Oxygen Concentration - - Weight 120 kg (265 lb) 06/18/2021 10:43 AM CDT Height 182.9 cm (6') 06/18/2021 10:43 AM CDT Body Mass Index 35.94 06/18/2021 10:43 AM CDT Plan of Treatment Health Maintenance Due Date Last Done Comments Influenza Vaccine (#1) 2024 Insurance [employer] Care Teams Boat Camp Operator Relationship Specialty Start Date End Date Jing Shah NP [address] [place] [id number] PCP - General 12/05/20
--- OUTSIDE RECORDS SUMMARY | 2024-10-21 09:29 | XMS_ITS | Patient Health Record ---
Author Organization [facility] Address [address] [place] [address] Care Team Providers Care It Systems Analyst Consultant Name Role Phone Nae Hernandez Primary Care Provi talha [phone] Allergies No Known Allergies Reason For Referral No Information Medications Medication SIG (Take, Route, Frequency, Duration) Notes Start Date End Date Status Gabapentin 800 MG 1 tablet Orally 4x per day Not-Taking buPROPion HCl ER (XL) 300 MG [...] done, please have him call office Not-Taking HYDROcodone-Acetamino phen 10-325 MG 1 tablet as needed Orally every 6 hrs Not-Taking buPROPion HCl ER (XL) 150 MG 1 tablet in the morning Orally Once a day; Duration: 30 day(s) Not-Taking traZODone HCl 150 MG 1 tablet at bedtime Orally Once a day; Duration: 30 day(s) Not-Taking Meloxicam 15 MG 1 tablet Orally Once a day; Duration: 30 day(s) Not-Taking Social History Tobacco Use: Social History Observation Description Date Details (start date - stop date) Current Smoker NA - NA Sex Assigned At : Social History Observation Description Sex Assigned At Male Dont use, Tobacco Use/Smoking Question Answer Notes Are you a current every day smoker Section Notes: [id number] 10/17/2020 09/17/2020 Gabapentin 270 30 300 MG NA Grace Cristobal E - [id number] [id number], [place], [place] [id number] 10/04/2020 10/04/2020 HYDROcodone BITARTRATE-ACETAMINOPHEN 180 30 325 MG-10 MG 60 Jing Shah - [id number] [facility] [id number], [place], [place] [id number] 09/17/2020 09/17/2020 Gabapentin 270 30 300 MG NA Grace Cristobal E - [id number] [place], [place] [id number] 09/06/2020 09/06/2020 Hydrocodon-acetaminophn 180 30 10-325 60 Sunita Self A - [id number] [place], [place] 1 [id number] 08/05/2020 08/05/2020 HYDROcodone BITARTRATE-ACETAMINOPHEN 180 30 2020 09/17/2020 Gabapentin 270 30 300 MG NA Grace Cristobal E - [id number] [facility] # [id number], [place], [place] [id number] 11/06/2020 11/06/2020 HYDROcodone-ACETAMINOPHEN 180 30 10MG-325MG 60 Sunita eSlf A - [id number] [facility] [id number], [place] 1 [id number] 10/17/2020 09/17/2020 Gabapentin 270 30 300 MG [id number] 02/05/2021 02/05/2021 HYDROcodone-ACETAMINOPHEN 180 30 10MG-325MG 60 Jing Shah - [id number] [facility] [id number], [place], [place] [id number] 01/22/2021 09/17/2020 Gabapentin 270 30 300 MG NA Grace Cristobal E - [id number] [facility] [id number], [place] [id number] 01/03/2021 01/03/2021 HYDROcodone-ACETAMINOPHEN 180 30 10MG-325MG 60 Jing Shah - [id number] [facility] # [id number], [facility] 1 [id number] 12/24/2020 09/17/2020 Gabapentin 270 30 300 MG NA Grace Cristobal E - [id number] [facility] # [id number], [facility] 1 [id number] 12/06/2020 12/05/2020 Hydrocodon-acetaminophn 180 30 10-325 Problems Problem Type SNOMED Code ICD Code Onset Dates Problem Status W/U Status Risk Notes Problem Post traumatic stress disorder (F43.10) Active confirmed Plan Of Treatment Future Test Test Name Order Date 12 Panel Urine Drug Screen 02/24/2021 Insurance Providers Payer Name Payer Address Payer Phone Subscriber Number Group Number Insured Name Patient Relationship to Insured Coverage Start Date Coverage End Date [facility] Attn Claims Department [address] [place] [address] [phone] [id number] Fabricio Dubose Self - patient is the insured 1 [place] [employer] Attn Claims Department [address] [place] [address] [phone] [id number] Fabricio Dubose Self - patient is the insured 1 Medical (General) History Medical History History ICD Code chronic pain HTN Surgical History Surgery Date(Month/Year) neck surgeries x2 bilateral carpel tunnelt release
--- OUTSIDE RECORDS SUMMARY | 2024-10-21 09:29 | XMS_ITS | Clinical Summary ---
Author Organization [facility] Physician Office Building [address] [place] [address] Care Team Providers Care Automatic Pattern Edger Name Role Phone Ronal Milner MD Unavailable [phone] Ronal Milner MD Primary Care Provider [phone] Allergies No known active allergies Medications traZODone (DESYREL) 100 mg tablet Take 50 mg by mouth 2 (two) times a day. Active gabapentin (NEURONTIN) 300 mg capsule Take 900 mg by mouth 3 (three) times a day. Active lisinopril (PRINIVIL,ZESTR [place]) 20 mg tabletIndicatio ns:hypertension Take 20 mg by mouth daily. Active albuterol HFA (PROVENTIL HFA,VENTOLIN HFA,PROAIR HFA) 90 mcg/actuation inhaler Inhale 2 puffs every 6 (six) hours as needed for wheezing. Active HYDROcodone-humberto taminophen (NORCO) 10-325 mg per tabletIndicatio ns:Pain Take 1every 4 hours as needed for pain 30 tablet 8 Active HYDROcodone-humberot taminophen (NORCO) 10-325 mg per tabletIndicatio ns:Pain Take 1 tablet every 4 hours as needed for pain 30 tablet 8 Active Additional Information Patient not taking.Reported on 04/11/2018 ibuprofen (ADVIL,MOTRIN) 600 mg tablet Take 1 tablet (600 mg total) by mouth 3 (three) times a day Take with food. 30 tablet 9 Active cyclobenzaprine (FLEXERIL) 10 mg tablet Take 1 tablet (10 mg total) by mouth every 8 (eight) hours as needed for muscle spasms 12 tablet 9 Active Active Problems Problem Noted Date Diagnosed Date Carpal tunnel syndrome, bilateral 12/16/2017 Assessment & Plan (01/31/2018 11:15 AM MANAGER FINANCE): The patient has had excellent recover from [...] more weeks. Scar massage may be helpful. Assessment & Plan (12/16/2017 11:06 AM CDT): By EMG nerve conduction study this patient was found have severe carpal tunnel on the right and moderate changes on the left. He does have some weakness that has developed may not fully recover but generally carpal tunnel release should allow for the relief from the night pain and sensory recovering majority of the cases. The patient was advised that somewhat impaired in his recovery and chronic cases and may take longer to fully recover. He like to proceed since the right hand is more symptomatic and it is his dominant side wants to have the right one done 1st. He was advised risks of infection, incisional numbness, hypersensitive scar, neuroma keloid formation, neurovascular compromise damage to the median nerve recurrent branch of the median nerve, seroma hematoma formation, medical and anesthetic risks including is willing to proceed s/p C4-5 and C4-5 ACDA on 2017 11/01/2017 Rotator cuff tendinitis, right 11/01/2017 Surgical History Surgery Date Site/Laterality Comments SPINAL FUSION CARPAL TUNNEL RELEASE 01/14/2018 Right Medical History Medical History Date Comments Asthma Obesity Hypertension Dairy product intolerance Carpal tunnel syndrome Sleep apnea Anxiety Arthritis Family History Medical History Relation Name Comments Diabetes Mother Diabetes Sister Relation Name Status Comments Father Mother Alive Sister Alive Social History Tobacco Use Types Packs/Day Years Used Date Smoking Tobacco: Former Cigarettes Q uit: 1987 Smokeless Tobacco: Never Comments:Smoked for 3 weeks and then quit due to the taste. Alcohol Use Standard Drinks/Week Comments Yes 0 (1 standard drink = 0.6 oz pur e alcohol) 2x/year PHQ-2 Answer Date Recorded PHQ-2 Score 0 05/21/2018 Personal Safety Answer Date Recorded Getting School Help Needed Not on file 05/29 Sex and Gender Information Value Date Recorded Sex Assigned at Not on file Legal Sex Male 10:57 AM CDT Gender Identity Not on file Sexual Orientation Not on file Occupation Industry Job Start Date Job End Date n/a Not on file Not on file Not on file Obstetrics History Last Filed Vital Signs Vital Sign Reading Time Taken Comments Blood Pressure 112/69 09/12/2019 2:30 AM CDT Pulse 51 09/12/2019 2:30 AM CDT Temperature 36.7 C (98.1 F) 09/11/2019 8:22 PM CDT Respiratory Rate 16 09/12/2019 2:30 AM CDT Oxygen Saturation 94% 09/12/2019 2:30 AM CDT Inhaled Oxygen Concentration - - Weight 129.7 kg (286 lb) 09/11/2019 8:22 PM CDT Height 185.4 cm (6' 1) 09/11/2019 8:22 PM CDT Body Mass Index 37.73 09/11/2019 8:22 PM CDT Plan of Treatment Not on file Insurance Advance Directives For more information, please contact: [phone] * Full Code (Latest Code Status on File) Date Activated Date Inactivated Comments 03/02/2017 3:32 PM 08/21/2017 3:26 AM Care Teams Automatic Pattern Edger Relationship Specialty Start Date End Date Ronal Milner MD PCP - General 11/19/18 Ronal Milner MD Family Medicine 01/12/17
[2024-10-21 10:07] LABS: Alanine Aminotransferase 24 U/L (6-50); Albumin Level 4.0 g/dL (3.5-5.1); Alkaline Phosphatase 68 U/L (38-126); Anion Gap 6 mmol/L (4-12); Aspartate Amino Transferase 36 U/L (17-59); Bilirubin,Total 0.8 mg/dL (0.2-1.3); Blood Urea Nitrogen 10 mg/dL (9-20); Calcium 9.1 mg/dL (8.4-10.2); Carbon Dioxide 25 mmol/L (22-30); Chloride 107 mmol/L (98-107); Cholesterol 159 mg/dL (0-200); Estimated Glomerular Filt Rate > 60; Glucose 102 mg/dL (65-110); HDL Direct 48 mg/dL; Potassium 4.4 mmol/L (3.4-5.0); Sodium 138 mmol/L (137-145); Total Protein 7.1 g/dL (6.3-8.2); Triglycerides 67 mg/dL (<150)
[2024-10-21 10:38] LABS: Thyroid Stimulating Hormone Reflex 0.975 uIU/mL (0.465-4.68)
== END 2024-10-21 09:26 | disposition home or self-care (01) ==
LOC: ANHLAB 09:27
PROVIDERS: PCP Family Medicine; Visit Provider Internal Medicine Cardiovascular Disease
DX: I10 Essential (primary) hypertension (principal)
CPT/HCPCS: 36415; 80053; 80061; 84443

== ENCOUNTER 2024-12-20 09:25 | Outpatient (CLI) | payer OTHER, SELFPAY ==
--- NOTE | 2024-12-20 09:41 | ECG_ITS ---
Test Date: 2024-12-20 09:51:33 Measurements Intervals [place] Rate: 57 P: 9 FL: 186 QRS: -21 QRSD: 145 T: 3 QT: 459 QTc: 450 Interpretive Statements SINUS BRADYCARDIA RIGHT BUNDLE BRANCH BLOCK LEFT VENTRICULAR HYPERTROPHY HIGH LATERAL INFARCT, AGE INDETERMINATE ABNORMAL ECG No previous ECG available for comparison Electronically Signed On 12-20-2024 10:09:47 CDT by Amado Godfrey D.O.
== END 2024-12-20 09:26 | disposition home or self-care (01) ==
PROVIDERS: PCP Nurse Practitioner Family; Visit Provider Nurse Practitioner Family
DX: R00.2 Palpitations (principal); R10.9 Unspecified abdominal pain; R94.31 Abnormal electrocardiogram [ECG] [EKG]
CPT/HCPCS: 93005

== ENCOUNTER 2024-12-29 13:10 | Outpatient (CLI) | payer OTHER, SELFPAY ==
--- OUTSIDE RECORDS SUMMARY | 2023-10-13 09:00 | XMS_ITS ---
Author Organization [facility] Address [address] [place] [address] Care Team Providers Care Retail Store Associate Name Role Phone Nae Hernandez Primary Care Provi talha [phone] Marina Aleman Unavailable [phone] REASON FOR VISIT mary [place] having SI ideations Medications Medication SIG (Take, Route, Frequency, Duration) Notes Start Date End Date Status traZODone HCl 150 MG 1 tablet at bedtime Orally Once a day; Duration: 30 day(s) Not-Taking Meloxicam 15 MG 1 tablet Orally Once a day; Duration: 30 day(s) Not-Taking Gabapentin 800 MG 1 tablet Orally 4x per day Not-Taking HYDROcodone-Acetamino phen 10-325 MG 1 tablet as needed Orally every 6 hrs Not-Taking buPROPion HCl ER (XL) 150 MG 1 tablet in the morning Orally Once a day; Duration: 30 day(s) Not-Taking buPROPion HCl ER (XL) 300 MG Oral; Duration: 90 Days Active Escitalopram Oxalate 10 MG 1 tablet Orally Once a day; Duration: 30 day(s) Not-Taking Meloxicam 15 MG Oral; Duration: 90 Days Active Albuterol Sulfate HFA 108 (90 Base) MCG/ACT Inhalation; Duration: 25 Days Active Lisinopril 20 MG Oral; Duration: 90 Days Active Gabapentin 300 MG Oral; Duration: 90 Days Active traMADol HCl 50 MG TAKE 1 TABLET BY MOUTH FOUR TIMES DAILY Oral; Duration: 30 Days Active lamoTRIgine 200 MG TAKE 1 TABLET BY MOUTH EVERY DAY; Duration: 30 needs appt and lab work done, please have him call office Not-Taking Social History Sex Assigned At : Social History Observation Description Sex Assigned At Male Encounters Encounter Location Date Provider Diagnosis [address] [place] [address] 10/13/2023 Marina Aleman Plan Of Treatment No Information Progress Notes * Fabricio LEIGHDOB: [birth year] (54 yo M)Acc No.[id number]:10/13/2023 UNLOCKED PROGRESS NOTE Patient: Fabricio EDWARDS Provider: Antonio Aleman DNP, PMHNP-BC, DIGITAL FORENSIC EXAMINER :1970 A ge:52 Y S ex:Male Date:10/13/2023 Address:[facility] [place], [place] [id number] Pcp:Nae Phillips Subjective: * Chief Complaints: * 1 . NEW EVAL-per Shawanda Hahn,ct having SI ideations. * HPI: D o Not Use CSSRS Interpretation and Follow Up Plan: CSSRS Interpretation and Follow Up Plan. 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 D epression Screening: Intervention F ollow-Up for Depression M anagement of mental health with treatment G AD-7 Screenin. Feeling nervous, anxious, or on edge : . 2. Not being able to stop or control worrying : . 3. Worrying too much about different things : . 4. Trouble sleeping/relaxing : . 5. Being so restless that it is hard to sit still : . 6. Becoming easily annoyed or irritable : . 7. Feeling afraid, as if something awful might happen : .? VIDA-7 Score T otal score: : M ood Disorder Questionnaire: Administration Y ou felt so good or so hyper Y es . Y ou were irritable . Y ou felt more self-confident than usual . Y ou got less sleep than usual but did not miss it . Y ou were more talkative or spoke faster . Y our thoughts raced or you could not slow thoughts down . Y ou were easily distracted, had trouble concentrating . Y ou had more energy than usual . Y ou were more active or doing many things than usual . Y ou were more social than usual . Y ou were more interested in sex than usual?. Y ou did things that were risky, excessive or foolish . S pending money got you or your family in trouble . I f yes to more than one above, have several happened at the same period of time? . H ow much of a problem did thse cause you??. H ave any blood relatives had bioplar disorder?. H as a healthcare provider said you have bipolar disorder? . D ate of Administration . * Medical History: * Medications: T aking traMADol HCl 50 MG Tablet TAKE 1 TABLET BY MOUTH FOUR TIMES DAILY Oral , Taking Gabapentin 300 MG Capsule Oral , Taking Lisinopril 20 MG Tablet Oral , Taking Albuterol Sulfate HFA 108 (90 Base) MCG/ACT Aerosol Solution Inhalation , Taking Meloxicam 15 MG Tablet Oral , Taking buPROPion HCl ER (XL) 300 MG Tablet Extended Release 24 Hour Oral , Not-Taking Escitalopram Oxalate 10 MG Tablet 1 tablet Orally Once a day , Not-Taking Gabapentin 800 MG Tablet 1 tablet Orally 4x per day , Not-Taking Meloxicam 15 MG Tablet 1 tablet Orally Once a day , Not-Taking traZODone HCl 150 MG Tablet 1 tablet at bedtime Orally Once a day , Not-Taking buPROPion HCl ER (XL) 150 MG Tablet Extended Release 24 Hour 1 tablet in the morning Orally Once a day , Not-Taking HYDROcodone-Acetaminophen 10-325 MG Tablet 1 tablet as needed Orally every 6 hrs , Not-Taking lamoTRIgine 200 MG Tablet TAKE 1 TABLET BY MOUTH EVERY DAY , Notes to Pharmacist: needs appt and lab work done, please have him call office Objective: * Vitals: Assessment: Plan: * Treatment: * * Electronic signature of Jillian Aleman on 12/29/2024 at 01:20 PM CDT Sign off status: Pending * Provider: Antonio Aleman DNP, PMHNP-BC, DIGITAL FORENSIC EXAMINER Date: 0 10/13/2023 Generated for Printing/Faxing/eTransmitting on: 01:20 PM CDT History and Physical Notes * HPI (History of Present Illness) Category Sub-Category Detail Notes Category Not es Depression Screening Intervention Follow-Up f or Depression: Management of mental health with treatment VIDA-7 Screening 1. Feeling nervous, anxious, or on edge : 2. Not being able to stop or control wor rying : 3. Worrying too much about different thi ngs : 4. Trouble sleeping/relaxing : 5. Being so restless that it is hard to sit still : 6. Becoming easily annoyed or irritable : 7. Feeling afraid, as if something awful might happen : VIDA-7 Score Total score:: : Mood Disorder Questionnaire Administration You felt so goo d or so hyper: Yes . You were irritable: . You felt more self-confident than usual: . You got less sleep than usual but did no t miss it: . You were more talkative or spoke faster: . Your thoughts raced or you could not slo w thoughts down: . You were easily distracted, had trouble concentrating: . You had more energy than usual: . You were more active or doing many thing s than usual: . You were more social than usual: . You were more interested in sex than usu al: . You did things that were risky, excessiv e or foolish: . Spending money got you or your family in trouble: . If yes to more than one abov e, have several happened at the same period of time?: . How much of a problem did thse cause you ?: . Have any blood relatives had bioplar dis order: . Has a healthcare provider said you have bipolar disorder?: . Date of Administration: .
--- NOTE | ~2024-12-29 | CT_ITS ---
CTA CHEST CLINICAL HISTORY: I71.2 - Thoracic aortic aneurysm, without rupture . COMPARISON: 11/05/2023 TECHNIQUE: Helical CTA performed from thoracic inlet to upper abdomen IV contrast information not in PACS Coronal, sagittal reformats. Multiplanar MIPS CT images acquired with automatic exposure control for dose reduction DLP: 961 mGy-cm FINDINGS: Pulmonary arteries: No PE. Thoracic Aorta: Unchanged fusiform aneurysmal ectasia ascending thoracic aorta at 4.6 cm. Heart/pericardium: Mildly enlarged. RV/LV ratio: Normal. Lungs/Pleura: Tiny left perifissural lymph node unchanged. Tracheobronchial tree: Patent. Nodes: No enlarged nodes. Bones: No acute bony abnormality. Soft tissues: Unremarkable. Visualized upper abdomen: Gallstones. Hepatic steatosis. IMPRESSION: 1. No acute cardiopulmonary abnormality or significant change. 2. Unchanged fusiform aneurysmal ectasia of ascending thoracic aorta at 4.6 cm. Reviewed, dictated and finalized at location R. IMPRESSION: 1. No acute cardiopulmonary abnormality or significant change. 2. Unchanged fusiform aneurysmal ectasia of ascending thoracic aorta at 4.6 cm .
--- OUTSIDE RECORDS SUMMARY | 2024-12-29 13:20 | XMS_ITS | Clinical Summary ---
Author Organization [facility] Address [address] [place] [address] Phone Care Team Providers Care Front End Application Developer Name Role Phone Jing Shah NP Primary Care Provider [phone] Allergies No known active allergies Medications HYDROcodone-humberto [...] (#1) 2024 Insurance [employer] Care Teams Front End Application Developer Relationship Specialty Start Date End Date Jing Shah NP [address] [place] [phone] PCP - General 12/05/20
--- OUTSIDE RECORDS SUMMARY | 2024-12-29 13:21 | XMS_ITS | Clinical Summary ---
Author Organization [facility] Address [address] [place] [address] Care Team Providers Care Communications Equipment Operator Name Role Phone Ronal Milner MD Primary Care Provider Source Comments [facility],non-owned Affiliates and Associated Physician Practices is amultiple site organization consisting of ambulatory clinics and hospital sitesin [place], [place], [place] and [place]. This disclosure is being madepursuant to the Care Everywhere program and may not contain all information available regarding this patient. Last updated 17.[facility] appiris Allergies No known active allergies Medications * [...] PM CDT Legal Sex Male 5:53 AM BRAIN SURGEON Gender Identity Male 06/19/2023 11:54 PM CDT Sexual Orientation Straight 06/19/2023 11 :54 PM CDT Last Filed Vital Signs Vital Sign Reading Time Taken Comments Blood Pressure 147/96 06/18/2023 10:28 AM CDT Pulse 65 06/18/2023 10:28 AM CDT Temperature 36.6 C (97.8 F) 06/18/2023 10:28 AM CDT Respiratory Rate 15 04/10/2022 12:22 PM BRAIN SURGEON Oxygen Saturation 97% 06/18/2023 10:28 AM CDT [...] of 2) 2018 SCREENING FOR DIABETES 06/18/2023 DEPRESSION SCREENING 03/15/2024 06/18/2023 COVID-19 VACCINE (4 - 2024-2 6 season) 2024 01/25/2021, 07/03/2020, 06/12/2020 INFLUENZA VACCINE (#1) 2024 , 02/21/2018 DTAP/TDAP/TD [...] age to complete this topic Insurance 3039, [address] [facility] Care Teams Communications Equipment Operator Relationship Specialty Start Date End Date Ronal Milner MD [address] [place] [address] PCP - General 10/26/19
--- OUTSIDE RECORDS SUMMARY | 2024-12-29 13:21 | XMS_ITS | Clinical Summary ---
Author Organization [facility] Physician Office Building [address] [place] [address] Care Team Providers Care Test Desk Supervisor Name Role Phone Ronal Milner MD Unavailable [phone] Ronal Milner MD Primary Care Provider [phone] Allergies No known active allergies Medications traZODone [...] needed for pain 30 tablet 8 Active HYDROcodone-humberto taminophen (NORCO) 10-325 mg per [...] 12/16/2017 Assessment & Plan (01/31/2018 11:15 AM INCIDENT RESPONSE ANALYST): The patient has had excellent recover from [...] Advance Directives For more information, please contact: [phone] * Full Code (Latest Code Status on File) Date Activated Date Inactivated Comments 03/02/2017 3:32 PM 08/21/2017 3:26 AM Care Teams Test Desk Supervisor Relationship Specialty Start Date End Date Ronal Milner MD PCP - General 11/19/18 Ronal Milner MD Family Medicine 01/12/17
--- OUTSIDE RECORDS SUMMARY | 2024-12-29 13:21 | XMS_ITS | Patient Health Record ---
Author Organization [facility] Address [address] [place] [address] Care Team Providers Care Fire Sprinkler Inspector Name Role Phone Nae Hernandez Primary Care Provi talha [phone] Allergies No Known Allergies Reason For Referral [...] a current every day smoker Section Notes: [id number] 02/05/2021 02/05/2021 HYDROcodone-ACETAMINOPHEN 180 30 10MG-325MG 60 Jing Shah - [id number] [facility] [id number], [place], [place] [id number] 01/22/2021 09/17/2020 Gabapentin 270 30 300 MG NA Grace Cristobal, E - [id number] [facility] # [id number], [place], [place] [id number] 01/03/2021 01/03/2021 HYDROcodone-ACETAMINOPHEN 180 30 10MG-325MG 60 Jing Shah - [id number] [facility] # [id number], [place] [id number] 12/24/2020 09/17/2020 Gabapentin 270 30 300 MG NA Grace Cristobal, E - [id number] [facility] # [id number], [place] [id number] 12/06/2020 12/05/2020 Hydrocodon-acetaminophn 180 30 10-325 2020 09/17/2020 Gabapentin 270 30 300 MG NA Grace Cristobal, E - [id number] [facility] # [id number], [place] [id number] 11/06/2020 11/06/2020 HYDROcodone-ACETAMINOPHEN 180 30 10MG-325MG 60 Sunita Self A - [id number] [facility] # [id number], [place] [id number] 10/17/2020 09/17/2020 Gabapentin 270 30 300 MG [id number] 10/17/2020 09/17/2020 Gabapentin 270 30 300 MG NA Grace Cristobal, E - [id number] [facility] # [id number], [place] 1 [id number] 10/04/2020 10/04/2020 HYDROcodone BITARTRATE-ACETAMINOPHEN 180 30 325 MG-10 MG 60 Jing Shah - [id number] [facility] # [id number], [place] [id number] 09/17/2020 09/17/2020 Gabapentin 270 30 300 MG NA Grace Cristobal, Bakari - [id number] [place], [place] 1 [id number] 09/06/2020 09/06/2020 Hydrocodon-acetaminophn 180 30 10-325 60 Suntia Self A - [id number] [place], [place] 1 [id number] 08/05/2020 08/05/2020 HYDROcodone BITARTRATE-ACETAMINOPHEN 180 30 Problems Problem Type SNOMED Code ICD Code Onset Dates Problem Status W/U Status Risk Notes Problem Post traumatic stress disorder (35814618) Post traumatic stress disorder (F43.10) Active confirmed Plan Of Treatment Future Test Test Name Order Date 12 Panel Urine Drug Screen 02/24/2021 Insurance Providers Payer Name Payer Address Payer Phone Subscriber Number Group Number Insured Name Patient Relationship to Insured Coverage Start Date Coverage End Date [facility] Attn Claims Department [address] [place] [address] [phone] [id number] Fabricio Dubose Self - patient is the insured 1 [employer] Attn Claims Department [address] [place] [address] [phone] [id number] Fabricio Dubose Self - patient is the insured 1 Medical (General) History Medical History History ICD Code chronic pain HTN Surgical History Surgery Date(Month/Year) neck surgeries x2 bilateral carpel tunnelt release
[2024-12-29 13:53] LABS: Estimated Glomerular Filt Rate > 60
[2024-12-29 14:34] LABS: Hematocrit 43.0 % (42.0-52.0); Hemoglobin 14.2 g/dL (14.0-18.0); Mean Corpuscular HGB Conc 33.0 g/dl (32-36); Mean Corpuscular Hemoglobin 31.5 pg (26-34); Mean Corpuscular Volume 95.3 fl (80-100); Platelet Count Result 272 k/mm3 (150-375); Red Blood Count 4.51 M/mm3 (4.6-6.20); White Blood Count 9.2 K/mm3 (4.5-10.0)
[2024-12-29 14:57] LABS: Alanine Aminotransferase 29 U/L (6-50); Albumin Level 4.3 g/dL (3.5-5.1); Alkaline Phosphatase 75 U/L (38-126); Anion Gap 5 mmol/L (4-12); Aspartate Amino Transferase 43 U/L (17-59); Bilirubin,Total 1.3 mg/dL (0.2-1.3); Blood Urea Nitrogen 14 mg/dL (9-20); Calcium 9.3 mg/dL (8.4-10.2); Carbon Dioxide 28 mmol/L (22-30); Chloride 104 mmol/L (98-107); Cholesterol 174 mg/dL (0-200); Estimated Glomerular Filt Rate > 60; Glucose 83 mg/dL (65-110); HDL Direct 53 mg/dL; Potassium 4.2 mmol/L (3.4-5.0); Sodium 137 mmol/L (137-145); Total Protein 7.5 g/dL (6.3-8.2); Triglycerides 78 mg/dL (<150)
[2024-12-29 15:29] LABS: Prostate Specific Antigen 2.2 ng/mL (< OR = 4.0)
[2024-12-29 15:32] LABS: Thyroid Stimulating Hormone Reflex 1.200 uIU/mL (0.465-4.68)
[2024-12-29 16:06] LABS: Vitamin B12 227.0 pg/mL (239-931)
== END 2024-12-29 13:11 | disposition home or self-care (01) ==
PROVIDERS: PCP Family Medicine; Referring Provider Nurse Practitioner Family; Visit Provider Internal Medicine Cardiovascular Disease
DX: Z13.1 Encounter for screening for diabetes mellitus (principal); Z13.220 Encounter for screening for lipoid disorders; Z12.5 Encounter for screening for malignant neoplasm of prostate; I71.20 Thoracic aortic aneurysm, without rupture, unspecified; I10 Essential (primary) hypertension
CPT/HCPCS: 36415; 71275; 80053; 80061; 82306; 82607; 82746; 84153; 84443; 85027; 94060; 94726; 94729; G0103; Q9967

== ENCOUNTER 2024-12-29 13:18 | Outpatient (CLI) | payer OTHER, SELFPAY ==
--- NOTE | 2025-02-05 00:03 | WPDPFTINT ---
PFT Procedure Performed PFT Procedure Performed Spirometry with Pre/Post Bronchodilator Plethysmography (Lung Vol) Diffusing Cap (DLCO) Flow Vol Loop PFT Interpretation DOS: 12/29/2024 REQUESTING: Larry Valdovinos MD REASON FOR TESTING: asthma PULMONARY FUNCTION TESTS Results are reliable and reproducible. Repeatability of spirometry FEV1 maneuver pre and post bronchodilator is Grade A. Erik: GLI 2012 reference equations were used. Spirometry: The pre-bronchodilator FEV1 is 2.63 L, 77%. The pre-bronchodilator FVC is 3.61 L83%. The FEV1/FVC ratio is 73%. After bronchodilator, the FEV1 is 2.89 L, 85%, +10. After bronchodilator, the FVC is 3.82 L, 88%, +6. The FEV1/FVC ratio is 76%. Lung volumes: The total lung capacity is 5.40 L, 83%. The residual volume is 1.65 L, 78%. The RV/TLC is 31%. The functional residual capacity is 2.17 L, 61%. Airway resistance is increased. Diffusion: DLCO is21.1, 70%. The DLCO/VA is 4.01, 94%. Flow volume loop: The flow volume loop shows a normal tracing. IMPRESSION: Normal spirometry without a statistically significant response to bronchodilator, normal lung volumes, mild diffusion impairment which corrects for alveolar volume. Lack of response to bronchodilator should not preclude use if clinically indicated. Compared to PFT on 11/01/2020, values are similar. Miriam Ellis MD
== END 2024-12-29 13:19 | disposition home or self-care (01) ==
LOC: ANHPFT 13:20
PROVIDERS: PCP Family Medicine; Visit Provider Internal Medicine Pulmonary Disease
DX: J45.909 Unspecified asthma, uncomplicated (principal)
CPT/HCPCS: 94060; 94726; 94729

== ENCOUNTER 2025-01-06 09:38 | Outpatient (CLI) | payer OTHER, SELFPAY ==
--- NOTE | ~2025-01-06 | US_ITS ---
Examination: US abdomen complete Clinical History: Unspecified abdominal pain . Comparison: CT abdomen pelvis 10/06/2020 Technique: Complete abdominal sonography Findings: Liver: Enlarged. Echogenic. No intrahepatic biliary ductal dilatation. Normal hepatopedal flow main portal vein. Common duct: Normal caliber, 4 mm. Gallbladder: Stones and sludge. No wall thickening. No pericholecystic fluid. Spleen: Unremarkable. Pancreas: Unremarkable. Kidneys: 5 cm cyst left kidney. Aorta: No aneurysmal dilatation. Retrohepatic IVC: Unremarkable. IMPRESSION: 1. No acute findings. Reviewed, dictated and finalized at location R. IMPRESSION: 1. No acute findings.
== END 2025-01-06 09:39 | disposition home or self-care (01) ==
PROVIDERS: PCP Nurse Practitioner Family; Visit Provider Nurse Practitioner Family
DX: R10.9 Unspecified abdominal pain (principal); R00.2 Palpitations
CPT/HCPCS: 76700